=== PATIENT | female | born 1935 | race Hispanic/Latino ===

== ENCOUNTER 2017-02-02 18:04 | Emergency (ER) | payer MEDICARE, OTHER ==
[2017-02-02 18:04] VITALS: BMI 27.2
[2017-02-02 18:11] VITALS: RESP 18; TEMP 97.9
[2017-02-02 18:52] LABS: RBC URINE 11 /hpf (0-3); URINE BILIRUBIN NEGATIVE (NEGATIVE); URINE BLOOD SMALL (NEGATIVE); URINE COLOR YELLOW (YELLOW); URINE GLUCOSE (UA) NEG (Normal); URINE KETONE NEGATIVE (NEGATIVE); URINE LEUKOCYTE ESTERASE SMALL Leu/uL (Negative); URINE PROTEIN NEGATIVE (NEGATIVE); URINE UROBILINOGEN 0.2-1.0 mg/dL (0.2-1.0); WBC URINE 14 /hpf (0-5)
--- NOTE | 2017-02-02 19:04 | ED PDOC ---
HPI: Abdomen Time Seen by Provider: 02/02/17 18:16 Chief Complaint (Nursing): Abdominal Pain Chief Complaint (Provider): Abdominal Pain History Per: Patient History/Exam Limitations: no limitations Onset/Duration Of Symptoms: Days (x4) Current Symptoms Are (Timing): Still Present Additional Complaint(s): 82 year old female who presents to the emergency department with a complaint of "crampy" intermittent abdominal pain associated with pelvic pain, chills, mild nausea and loss of appetite. Denied vomiting, fever, diarrhea, constipation, difficulty urinating, bloody urine, flank pain or taking pain medication. Patient also reported runny nose but stated that it is constantly runny. PMD: none provided Past Medical History Reviewed: Historical Data, Nursing Documentation, Vital Signs Vital Signs: Last Vital Signs Temp 97.9 F 02/02/17 18:08 Pulse 84 02/02/17 20:02 Resp 18 02/02/17 20:02 BP 109/64 02/02/17 20:02 Pulse Ox 96 02/02/17 20:02 - Medical History PMH: Arthritis, Depression, HTN, Hypercholesterolemia Denies: Anemia, Anxiety, Atrial Fibrillation, Bipolar Disorder, CAD, Cardia Arrhythmia, CHF, Crohn's Disease, Diverticulitis, Fractures, Gastritis, Gall Bladder Disease, HIV, Mitral Valve Prolapse, Osteoporosis, Pancreatitis, Paranoia, Peripheral Edema, Post Traumatic Stress Disorder, Chronic Kidney Disease, Rheumatoid Arthritis, Schizophrenia, Sickle Cell Disease - Surgical History Surgical History: Cholecystectomy Denies: Appendectomy, CABG, Carotid Endarterectomy, Coronary Stent, Pacemaker , Tonsillectomy - Family History Family History: States: No Known Family Hx - Social History Current smoker - smoking cessation education provided: No Alcohol: None Drugs: Denies - Home Medications Home Medications: Ambulatory Orders Medication Instructions Recorded Calcium/Vitamin D [Calcium + D 600 1 tab PO BID 12/04/13 mg-200 Iu] Escitalopram [Lexapro] 10 mg PO DAILY 12/04/13 Lisinopril 10 mg PO DAILY 12/04/13 Omeprazole 40 mg PO DAILY 12/04/13 Simvastatin 20 mg PO DAILY 12/04/13 Albuterol 0.5% [Albuterol 0.5% 3 ml IH Q4H PRN #50 neb 01/27/16 Inhal Moraima (2.5 mg/0.5 ml) UD] Aspirin [Adult Low Dose Aspirin EC] 81 mg PO DAILY 02/02/17 Nitrofurantoin Macrocrystals 1 cap PO BID #14 cap 02/02/17 [Macrobid] Ranitidine HCl [Zantac 75] 1 tab PO DAILY 02/02/17 - Allergies Allergies/Adverse Reactions: Allergies Allergy/AdvReac Type Severity Reaction Status Date / Time No Known Allergies Allergy Verified 01/27/16 17:42 Review of Systems ROS Statement: Except As Marked, All Systems Reviewed And Found Negative Constitutional: Positive for: Chills. Negative for: Fever ENT: Positive for: Nose Discharge (constant) Gastrointestinal: Positive for: Nausea (mild), Abdominal Pain ("crampy"), Other (loss of appetite). Negative for: Vomiting, Diarrhea, Constipation Genitourinary Female: Positive for: Pelvic Pain. Negative for: Dysuria, Hematuria Musculoskeletal: Negative for: Back Pain (flank) Physical Exam - Reviewed Nursing Documentation Reviewed: Yes Vital Signs Reviewed: Yes - Physical Exam Appears: Positive for: Non-toxic, No Acute Distress Head Exam: Positive for: ATRAUMATIC, NORMOCEPHALIC Skin: Positive for: Warm, Dry, Pallor Eye Exam: Positive for: EOMI, PERRL ENT: Negative for: Pharyngeal Erythema, Tonsillar Exudate Neck: Positive for: Painless ROM, Supple Cardiovascular/Chest: Positive for: Regular Rate, Rhythm, Chest Non Tender. Negative for: Murmur Respiratory: Positive for: Normal Breath Sounds. Negative for: Rales, Wheezing , Respiratory Distress Gastrointestinal/Abdominal: Positive for: Soft. Negative for: Tenderness, Mass , Distended, Guarding Back: Positive for: Other (Severe kyphosis). Negative for: L CVA Tenderness, R CVA Tenderness, Vertebral Tenderness Extremity: Positive for: Normal ROM. Negative for: Deformity Lymphatic: Negative for: Adenopathy Neurologic/Psych: Positive for: Alert. Negative for: Motor/Sensory Deficits - Laboratory Results Result Diagrams: 02/02/17 19:10 02/02/17 19:10 - ECG O2 Sat by Pulse Oximetry: 93 (RA) Pulse Ox Interpretation: Normal Medical Decision Making Medical Decision Making: Initial Impression: Pelvic pain; Chills Differential Diagnosis: UTI; cystitis; colitis; viral illness; dehydration Initial Plan: * VBG * EKG * CMP * Lipase * Magnesium * Phosphorous * Urine * Urine dipstick * CBC * CXR * Blood culture * Urine culture * Influenza A B * Urinalysis Labs c/w UTI. No emergently significant lab abnormalities. Stable for DC with outpatient f/u. DW pt findings and plan of care. Pt eager to go home. Scribe Attestation: Documented by Adriane Cortez, acting as a scribe for Shefali George MD. Provider Scribe Attestation: All medical record entries made by the Scribe were at my direction and personally dictated by me. I have reviewed the chart and agree that the record accurately reflects my personal performance of the history, physical exam, medical decision making, and the department course for this patient. I have also personally directed, reviewed, and agree with the discharge instructions and disposition. Disposition - Clinical Impression Clinical Impression: UTI (urinary tract infection) Counseled Patient/Family Regarding: Studies Performed, Diagnosis, Need For Followup, Rx Given - Disposition Referrals: [facility] [Outside] - 02/04/17 Disposition: Routine/Home Disposition Time: 20:00 Condition: GOOD Prescriptions: Nitrofurantoin Macrocrystals [Macrobid] 1 cap PO BID #14 cap Instructions: Urinary Tract Infection in Women (ED)
[2017-02-02 19:15] LABS: BASO % 0.5 % (0.0-2.0); EOS # 0.1 K/uL (0.0-0.7); EOS % 2.1 % (0.0-4.0); HEMATOCRIT 39.3 % (34.0-47.0); LYMPH # 1.9 K/uL (1.0-4.3); LYMPH % 29.4 % (20.0-40.0); MEAN CELL VOLUME 86.2 fl (81.0-99.0); MEAN CORPUSCULAR HEMOGLOBIN 27.9 pg (27.0-31.0); MEAN CORPUSCULAR HGB CONC 32.4 g/dL (33.0-37.0); MONO # 0.5 K/uL (0.0-0.8); MONO % 7.4 % (0.0-10.0); NEUT # 3.8 K/uL (1.8-7.0); NEUT % 60.6 % (50.0-75.0); NRBC % 0.1 % (0.0-0.0); WHITE BLOOD COUNT 6.3 K/uL (4.8-10.8)
[2017-02-02 19:22] LABS: VENOUS BLOOD GAS BASE EXCESS 2.8 mmol/L (0.0-2.0); VENOUS BLOOD GAS PCO2 57 mmHg (40-60); VENOUS BLOOD PH 7.33 (7.32-7.43)
[2017-02-02 19:25] LABS: ALB/GLOB RATIO 1.3 (1.0-2.1); ALKALINE PHOSPHATASE 89 U/L (38-126); ALT/SGPT 35 U/L (9-52); AST/SGOT 28 U/L (14-36); BILIRUBIN,TOTAL 0.3 mg/dl (0.2-1.3); BLOOD UREA NITROGEN 22 mg/dl (7-17); CALCIUM 9.2 mg/dL (8.4-10.2); CARBON DIOXIDE 29 mmol/L (22-30); CHLORIDE 104 mmol/L (98-107); GFR AFRICAN-AMERICAN > 60; GLUCOSE,RANDOM 109 mg/dL (65-105); LIPASE 161 U/L (23-300); MAGNESIUM 1.5 MG/DL (1.6-2.3); PHOSPHOROUS 3.3 mg/dl (2.5-4.5); POTASSIUM 3.7 MMOL/L (3.6-5.0); SODIUM 142 mmol/l (132-148); TOTAL PROTEIN 7.3 G/DL (6.3-8.2)
[2017-02-02 20:26] VITALS: BP 110/61; PULSE 86; O2SAT 96
--- NOTE | 2017-02-03 11:13 | CARD ---
APPROVED REPORT EKG Measurement Heart [id number] <Conclusion> Sinus rhythm with premature atrial complexes Otherwise normal ECG
--- NOTE | 2017-02-03 15:23 | RAD ---
HISTORY: chills COMPARISON: No prior. FINDINGS: LUNGS: Low lung volumes, crowded bronchovascular markings and mild bibasilar atelectasis in part due to significant scoliotic deformity. PLEURA: No significant pleural effusion identified, no pneumothorax apparent. CARDIOVASCULAR: Heart size is difficult to assess due to at aforementioned scoliosis and distortion of the mediastinum. The aorta is also poorly delineated though appears to be ectatic and uncoiled. . OSSEOUS STRUCTURES: As above. VISUALIZED UPPER ABDOMEN: Normal. OTHER FINDINGS: None. IMPRESSION: Significant scoliosis again noted with the low lung volumes, crowded bronchovascular markings and mild bibasilar atelectasis as above.
== END 2017-02-02 20:31 | disposition home or self-care (01) ==
LOC: H.ER 18:04
DX: N39.0 Urinary tract infection, site not specified (principal); E78.00 Pure hypercholesterolemia, unspecified; F32.9 Major depressive disorder, single episode, unspecified; I10 Essential (primary) hypertension; I49.1 Atrial premature depolarization; M41.9 Scoliosis, unspecified; Z79.82 Long term (current) use of aspirin

== ENCOUNTER 2017-05-01 09:37 | Emergency (ER) | payer MEDICARE, SELFPAY ==
[2017-05-01 09:37] VITALS: BMI 27.2
[2017-05-01 10:21] VITALS: TEMP 97.9; O2SAT 96
[2017-05-01] MEDS ORDERED: Sodium Chloride 0.9% 1,000 ML IV STA (10:48)
--- NOTE | 2017-05-01 11:14 | ED PDOC ---
HPI: Abdomen Time Seen by Provider: 05/01/17 10:25 Chief Complaint (Nursing): Abdominal Pain Chief Complaint (Provider): Abdominal Pain History Per: Patient History/Exam Limitations: no limitations Onset/Duration Of Symptoms: Hrs Current Symptoms Are (Timing): Still Present Additional Complaint(s): Tamara Halney is an 82 year old female with a history of hypertension that presents to the ED with a chief complaint of abdominal cramping and diarrhea associated with nausea that began this morning. Patient reports that her lower abdominal cramping resolved after an episode of diarrhea, which she reports was watery, loose, and nonbloody. Patient denies any fever, chills, chest pain, vomiting, urinary problems, recent travel, or antibiotics use. She states that she ate cheesecake last night, slept, and woke up with all of these symptoms. PMD: Goes to the clinic Past Medical History Reviewed: Historical Data, Nursing Documentation, Vital Signs Vital Signs: Last Vital Signs Temp 97.9 F 05/01/17 10:20 Pulse 82 05/01/17 17:15 Resp 18 05/01/17 17:15 BP 126/70 05/01/17 17:15 Pulse Ox 96 05/01/17 17:15 - Medical History PMH: Arthritis, Depression, HTN, Hypercholesterolemia Denies: Anemia, Anxiety, Atrial Fibrillation, Bipolar Disorder, CAD, Cardia Arrhythmia, CHF, Crohn's Disease, Diverticulitis, Fractures, Gastritis, Gall Bladder Disease, HIV, Mitral Valve Prolapse, Osteoporosis, Pancreatitis, Paranoia, Peripheral Edema, Post Traumatic Stress Disorder, Chronic Kidney Disease, Rheumatoid Arthritis, Schizophrenia, Sickle Cell Disease - Surgical History Surgical History: Cholecystectomy Denies: Appendectomy, CABG, Carotid Endarterectomy, Coronary Stent, Pacemaker , Tonsillectomy Other surgeries: right hip replacement - Family History Family History: States: Unknown Family Hx - Home Medications Home Medications: Ambulatory Orders Medication Instructions Recorded Calcium/Vitamin D [Calcium + D 600 1 tab PO BID 12/04/13 mg-200 Iu] Escitalopram [Lexapro] 10 mg PO DAILY 12/04/13 Lisinopril 10 mg PO DAILY 12/04/13 Omeprazole 40 mg PO DAILY 12/04/13 Simvastatin 20 mg PO DAILY 12/04/13 Albuterol 0.5% [Albuterol 0.5% 3 ml IH Q4H PRN #50 neb 01/27/16 Inhal Moraima (2.5 mg/0.5 ml) UD] Aspirin [Adult Low Dose Aspirin EC] 81 mg PO DAILY 02/02/17 Nitrofurantoin Macrocrystals 1 cap PO BID #14 cap 02/02/17 [Macrobid] Ranitidine HCl [Zantac 75] 1 tab PO DAILY 02/02/17 Ciprofloxacin HCl [Cipro] 500 mg PO BID #14 tablet 05/01/17 Dicyclomine [Dicyclomine HCl] 10 mg PO TID PRN #15 cap 05/01/17 Metronidazole [Flagyl] 500 mg PO BID #14 tablet 05/01/17 Pantoprazole Sodium [Protonix] 20 mg PO DAILY #30 ect 05/01/17 - Allergies Allergies/Adverse Reactions: Allergies Allergy/AdvReac Type Severity Reaction Status Date / Time No Known Allergies Allergy Verified 01/27/16 17:42 Review of Systems ROS Statement: Except As Marked, All Systems Reviewed And Found Negative Constitutional: Negative for: Fever, Chills Cardiovascular: Negative for: Chest Pain Gastrointestinal: Positive for: Nausea, Abdominal Pain, Diarrhea. Negative for : Vomiting Genitourinary Female: Negative for: Dysuria, Frequency, Incontinence, Hematuria Physical Exam - Reviewed Nursing Documentation Reviewed: Yes Vital Signs Reviewed: Yes - Physical Exam Appears: Positive for: Non-toxic, No Acute Distress (Patient appears comfortable ) Head Exam: Positive for: ATRAUMATIC, NORMOCEPHALIC Skin: Positive for: Normal Color, Warm Eye Exam: Positive for: EOMI, Normal appearance, PERRL Neck: Positive for: Normal, Supple Cardiovascular/Chest: Positive for: Regular Rate, Rhythm. Negative for: Murmur Respiratory: Positive for: Normal Breath Sounds. Negative for: Wheezing Gastrointestinal/Abdominal: Positive for: Normal Exam, Soft. Negative for: Tenderness, Distended Back: Positive for: Normal Inspection. Negative for: L CVA Tenderness, R CVA Tenderness Extremity: Positive for: Normal ROM. Negative for: Deformity, Swelling Neurologic/Psych: Positive for: Alert, Oriented. Negative for: Motor/Sensory Deficits - Laboratory Results Result Diagrams: 05/01/17 11:35 05/01/17 11:35 - ECG O2 Sat by Pulse Oximetry: 96 (RA) Pulse Ox Interpretation: Normal - Progress Re-evaluation Time: 16:00 Condition: Re-examined, Improved Medical Decision Making Medical Decision Making: Impression: Abdominal Pain and Diarrhea, ddx include but not limited to Acute Colitis vs. Gastroenteritis vs. Pancreatitis Plan: * CT Abdomen/Pelvis with IV Contrast * CMP * CBC * Lipase * Urine Dip * Bentyl 10 mg PO * NaCl 1000 mLs at 1000 mLs/hr * Reevaluation Time: 14:29 CT ABDOMEN AND PELVIS FINDINGS: LOWER THORAX: Unremarkable. Hiatal hernia suggested. Coronary artery calcifications. LIVER: Diffuse fatty infiltration of the liver suggested. No gross lesion or ductal dilation. GALLBLADDER AND BILE DUCTS: Cholecystectomy clips present. PANCREAS: Unremarkable. No gross lesion or ductal dilation. SPLEEN: Multiple cystic appearing mass is present. ADRENALS: Unremarkable. No mass. KIDNEYS AND URETERS: Each kidney appears mildly atrophic. No hydronephrosis. Bilateral renal cystic masses noted. VASCULATURE: Atherosclerotic vascular calcifications. No aortic aneurysm. BOWEL: Left and right stool retention. No obstruction. No gross mural thickening. Rectosigmoid redundant colon with innumerable diverticuli present. Circular muscle hypertrophic changes likely. Trace thread-like pericolonic inflammatory changes may be chronic. No abscess, free air or bowel obstruction appreciated. APPENDIX: Not identified with certainty. PERITONEUM: Trace inflammatory changes possibly chronic --patient has extensive rectosigmoid divercitulosis. No prominent pericolonic current inflammatory changes suggested. Chronic trace residual pericolonic inflammatory changes possible. No abscess or obstruction. No free fluid. No free air. LYMPH NODES: Unremarkable. No enlarged lymph nodes. BLADDER: Unremarkable. REPRODUTIVE: Unremarkable. BONES: Extensive and severe scoliosis. Extensive and severe bony osseous hypertrophic changes. No gross fracture seen. Right hip prosthesis in place associated artifact limiting right hemopelvic evaluation;. OTHER FINDINGS: None. IMPRESSION: No bowel obstruction or free air. Extensive rectosigmoid diverticulosis. Other findings as above. Scribe Attestation: Documented by Chanelle Grijalva and Joe Galicia, acting as scribes for Yeimi Middleton MD. Provider Scribe Attestation: All medical record entries made by the Scribe were at my direction and personally dictated by me. I have reviewed the chart and agree that the record accurately reflects my personal performance of the history, physical exam, medical decision making, and the department course for this patient. I have also personally directed, reviewed, and agree with the discharge instructions and disposition. Disposition - Clinical Impression Clinical Impression: Abdominal pain, Colitis, Diverticulosis - Patient ED Disposition Is Patient to be Admitted: No Doctor Will See Patient In The: Office Counseled Patient/Family Regarding: Studies Performed, Diagnosis, Need For Followup - Disposition Referrals: Andres Peres MD, PhD [Staff Provider] - Disposition: Routine/Home Disposition Time: 16:32 Condition: GOOD Additional Instructions: Take your medications as instructed. Follow up with your PCP in 2-3 days. Return for worsening. Prescriptions: Ciprofloxacin HCl [Cipro] 500 mg PO BID #14 tablet Dicyclomine [Dicyclomine HCl] 10 mg PO TID PRN #15 cap PRN Reason: Diarrhea Metronidazole [Flagyl] 500 mg PO BID #14 tablet Pantoprazole Sodium [Protonix] 20 mg PO DAILY #30 ect Instructions: Inflammatory Bowel Disease (DC)
[2017-05-01 11:53] LABS: BASO % 0.2 % (0.0-2.0); EOS % 0.1 % (0.0-4.0); HEMOGLOBIN 14.1 g/dL (12.0-16.0); LYMPH # 1.1 K/uL (1.0-4.3); LYMPH % 7.6 % (20.0-40.0); MEAN CELL VOLUME 86.7 fl (81.0-99.0); MEAN CORPUSCULAR HEMOGLOBIN 28.5 pg (27.0-31.0); MEAN CORPUSCULAR HGB CONC 32.9 g/dL (33.0-37.0); MEAN PLATELET VOLUME 8.4 fl (7.2-11.7); MONO # 0.8 K/uL (0.0-0.8); MONO % 5.4 % (0.0-10.0); NEUT # 12.6 K/uL (1.8-7.0); NEUT % 86.7 % (50.0-75.0); PLATELET COUNT 242 K/uL (130-400); RBC 4.96 Mil/uL (3.80-5.20); RED CELL DISTRIBUTION WIDTH 14.4 % (11.5-14.5); WHITE BLOOD COUNT 14.5 K/uL (4.8-10.8)
[2017-05-01 12:17] LABS: ALB/GLOB RATIO 1.2 (1.0-2.1); ALBUMIN 4.1 g/dL (3.5-5.0); ALT/SGPT 29 U/L (9-52); AST/SGOT 40 U/L (14-36); BLOOD UREA NITROGEN 22 mg/dl (7-17); CALCIUM 9.8 mg/dL (8.4-10.2); GFR AFRICAN-AMERICAN > 60; GFR NON-AFRICAN AMERICAN > 60; LIPASE 339 U/L (23-300)
[2017-05-01 12:34] LABS: BANDS 2 % (0-2); LYMPHOCYTE 5 % (20-50); MONOCYTE 6 % (0-10); NEUTROPHIL 87 % (42-75); PLATELET ESTIMATE NORMAL (NORMAL); TOTAL CELLS COUNTED 100
[2017-05-01] MEDS ORDERED: Iohexol 300 100 ML IJ ONE (14:00)
--- NOTE | 2017-05-01 15:08 | CT ---
PROCEDURE: CT Abdomen and Pelvis with contrast HISTORY: abdominal pain diarrhea COMPARISON: None. TECHNIQUE: Contrast dose: 95 mL Omnipaque 300 Radiation dose: Total exam DLP = 631 mGy-cm. This CT exam was performed using one or more of the following dose reduction techniques: Automated exposure control, adjustment of the mA and/or kV according to patient size, and/or use of iterative reconstruction technique. FINDINGS: LOWER THORAX: Unremarkable. Hiatal hernia suggested. Coronary artery calcifications LIVER: Diffuse fatty infiltration of the liver suggested. No gross lesion or ductal dilatation. GALLBLADDER AND BILE DUCTS: Cholecystectomy clips present PANCREAS: Unremarkable. No gross lesion or ductal dilatation. SPLEEN: Multiple cystic appearing mass is present ADRENALS: Unremarkable. No mass. KIDNEYS AND URETERS: Each kidney appears mildly atrophic. No hydronephrosis. Bilateral renal cystic masses noted. VASCULATURE: Atherosclerotic vascular calcifications No aortic aneurysm. BOWEL: Left and right stool retention. No obstruction. No gross mural thickening. Rectosigmoid redundant colon with innumerable diverticuli present. Circular muscle hypertrophic changes likely. Trace thread-like pericolonic inflammatory changes may be chronic. No abscess, free air or bowel obstruction appreciated. APPENDIX: Not identified with certainty. PERITONEUM: Trace inflammatory changes possibly chronic - -patient has extensive rectosigmoid diverticulosis. No prominent pericolonic current inflammatory changes suggested. Chronic trace residual pericolonic inflammatory changes possible. . No abscess or obstruction No free fluid. No free air. LYMPH NODES: Unremarkable. No enlarged lymph nodes. BLADDER: Unremarkable. REPRODUCTIVE: Unremarkable. BONES: Extensive and severe scoliosis. Extensive and severe bony osseous hypertrophic changes. No gross fracture seen. Right hip prosthesis in place associated artifact limiting right hemipelvic evaluation OTHER FINDINGS: None. IMPRESSION: No bowel obstruction or free air. Extensive rectosigmoid diverticulosis. Other findings as above
[2017-05-01 17:16] VITALS: BP 126/70; PULSE 82; RESP 18
== END 2017-05-01 17:02 | disposition home or self-care (01) ==
LOC: H.ER 09:37
DX: K52.9 Noninfective gastroenteritis and colitis, unspecified (principal); K57.90 Diverticulosis of intestine, part unspecified, without perforation or abscess without bleeding; E78.00 Pure hypercholesterolemia, unspecified; F32.9 Major depressive disorder, single episode, unspecified; I10 Essential (primary) hypertension; Z79.82 Long term (current) use of aspirin
CPT/HCPCS: 74177; 80053; 83690; 85025; 99284; J7040; Q9967

== ENCOUNTER 2017-07-19 06:50 | Emergency (ER) | payer MEDICARE, SELFPAY ==
[2017-07-19 06:51] VITALS: BMI 27.2
[2017-07-19] MEDS ORDERED: Sodium Chloride 0.9% 1,000 ML IV STA (07:23)
[2017-07-19 07:50] LABS: BASO % 0.4 % (0.0-2.0); EOS # 0.1 K/uL (0.0-0.7); HEMOGLOBIN 12.5 g/dL (12.0-16.0); LYMPH # 1.4 K/uL (1.0-4.3); LYMPH % 19.8 % (20.0-40.0); MEAN CELL VOLUME 87.1 fl (81.0-99.0); MEAN CORPUSCULAR HEMOGLOBIN 28.5 pg (27.0-31.0); MEAN CORPUSCULAR HGB CONC 32.7 g/dL (33.0-37.0); MEAN PLATELET VOLUME 8.2 fl (7.2-11.7); MONO # 0.5 K/uL (0.0-0.8); MONO % 6.9 % (0.0-10.0); NEUT # 5.1 K/uL (1.8-7.0); NEUT % 71.9 % (50.0-75.0); NRBC % 0.1 % (0.0-0.0); RBC 4.39 Mil/uL (3.80-5.20)
--- NOTE | 2017-07-19 07:51 | ED PDOC ---
HPI: Abdomen Time Seen by Provider: 07/19/17 07:05 Chief Complaint (Nursing): Abdominal Pain Chief Complaint (Provider): Abdominal Pain History Per: Patient History/Exam Limitations: no limitations Onset/Duration Of Symptoms: Days (1x) Current Symptoms Are (Timing): Still Present Location Of Pain/Discomfort: Other (Lower) Quality Of Discomfort: "Pain" Associated Symptoms: Nausea, Diarrhea Additional Complaint(s): 82 year old female presents to the ED complaining nausea and lower abdominal pain onset yesterday. Reports she might have a bowel infection and had diarrhea yesterday. States the pain does not radiate but she feels uncomfortable. She also takes medication for blood pressure and cholesterol. Denies fever, burning or blood in urine, headache, sore throat, or chest pain. PMD: Clinic (Non [facility] Provider) Past Medical History Reviewed: Historical Data, Nursing Documentation, Vital Signs Vital Signs: Last Vital Signs Temp 97.4 F L 07/19/17 07:03 Pulse 82 07/19/17 07:03 Resp 16 07/19/17 07:03 BP 135/75 07/19/17 07:03 Pulse Ox 95 07/19/17 07:55 - Medical History PMH: Arthritis, Depression, HTN, Hypercholesterolemia Denies: Anemia, Anxiety, Atrial Fibrillation, Bipolar Disorder, CAD, Cardia Arrhythmia, CHF, Crohn's Disease, Diverticulitis, Fractures, Gastritis, Gall Bladder Disease, HIV, Mitral Valve Prolapse, Osteoporosis, Pancreatitis, Paranoia, Peripheral Edema, Post Traumatic Stress Disorder, Chronic Kidney Disease, Rheumatoid Arthritis, Schizophrenia, Sickle Cell Disease - Surgical History Surgical History: Cholecystectomy Denies: Appendectomy, CABG, Carotid Endarterectomy, Coronary Stent, Pacemaker , Tonsillectomy - Family History Family History: States: Unknown Family Hx - Social History Current smoker - smoking cessation education provided: No Ex-Smoker (has not smoked in the last 12 months): Yes (last smoked 30 years ago) - Home Medications Home Medications: Ambulatory Orders Medication Instructions Recorded Calcium/Vitamin D [Calcium + D 600 1 tab PO BID 12/04/13 mg-200 Iu] Escitalopram [Lexapro] 10 mg PO DAILY 12/04/13 Lisinopril 10 mg PO DAILY 12/04/13 Omeprazole 40 mg PO DAILY 12/04/13 Simvastatin 20 mg PO DAILY 12/04/13 Albuterol 0.5% [Albuterol 0.5% 3 ml IH Q4H PRN #50 neb 01/27/16 Inhal Moraima (2.5 mg/0.5 ml) UD] Aspirin [Adult Low Dose Aspirin EC] 81 mg PO DAILY 02/02/17 Nitrofurantoin Macrocrystals 1 cap PO BID #14 cap 02/02/17 [Macrobid] Ranitidine HCl [Zantac 75] 1 tab PO DAILY 02/02/17 Ciprofloxacin HCl [Cipro] 500 mg PO BID #14 tablet 05/01/17 Dicyclomine [Dicyclomine HCl] 10 mg PO TID PRN #15 cap 05/01/17 Metronidazole [Flagyl] 500 mg PO BID #14 tablet 05/01/17 Pantoprazole Sodium [Protonix] 20 mg PO DAILY #30 ect 05/01/17 Ciprofloxacin HCl [Cipro] 250 mg PO BID #6 tab 07/19/17 - Allergies Allergies/Adverse Reactions: Allergies Allergy/AdvReac Type Severity Reaction Status Date / Time No Known Allergies Allergy Verified 01/27/16 17:42 Review of Systems ROS Statement: Except As Marked, All Systems Reviewed And Found Negative Constitutional: Negative for: Fever ENT: Negative for: Throat Pain Cardiovascular: Negative for: Chest Pain Gastrointestinal: Positive for: Abdominal Pain (lower), Diarrhea Genitourinary Female: Negative for: Dysuria Physical Exam - Reviewed Nursing Documentation Reviewed: Yes Vital Signs Reviewed: Yes - Physical Exam Appears: Positive for: Non-toxic, No Acute Distress Head Exam: Positive for: ATRAUMATIC, NORMAL INSPECTION, NORMOCEPHALIC Skin: Positive for: Normal Color, Warm, Dry Eye Exam: Positive for: EOMI, Normal appearance, PERRL ENT: Positive for: Normal ENT Inspection (tongue is dry) Neck: Positive for: Normal, Painless ROM, Supple. Negative for: Decreased ROM Cardiovascular/Chest: Positive for: Regular Rate, Rhythm. Negative for: Murmur Respiratory: Positive for: Normal Breath Sounds. Negative for: Decreased Breath Sounds, Accessory Muscle Use, Respiratory Distress Gastrointestinal/Abdominal: Positive for: Normal Exam, Bowel Sounds, Soft. Negative for: Tenderness, Distended, Guarding, Rebound Back: Positive for: Normal Inspection. Negative for: L CVA Tenderness, R CVA Tenderness Extremity: Positive for: Normal ROM. Negative for: Tenderness, Pedal Edema, Deformity Neurologic/Psych: Positive for: Alert, Oriented (x3). Negative for: Motor/ Sensory Deficits - Laboratory Results Result Diagrams: 07/19/17 07:30 07/19/17 07:30 Urine dip results: Positive for: Leukocyte Esterase - ECG O2 Sat by Pulse Oximetry: 95 (RA) Pulse Ox Interpretation: Normal Medical Decision Making Medical Decision Making: Time: 721 Initial Plan: --CMP --Lipase --ED Urine Dipstick --CBC w/ Differential --Obstructive Series [RAD] --Normal Saline 1000 mls/hr --Toradol 15mg --Reevaluation Scribe Attestation: Documented by Fco Vasques, acting as a scribe for Ruby Matias MD Provider Scribe Attestation: All medical record entries made by the Scribe were at my direction and personally dictated by me. I have reviewed the chart and agree that the record accurately reflects my personal performance of the history, physical exam, medical decision making, and the department course for this patient. I have also personally directed, reviewed, and agree with the discharge instructions and disposition. Disposition - Clinical Impression Clinical Impression: Pyuria - Patient ED Disposition Is Patient to be Admitted: No Doctor Will See Patient In The: Office Counseled Patient/Family Regarding: Diagnosis, Need For Followup, Rx Given - Disposition Referrals: [facility] [Outside] [facility] [Outside] Disposition: Routine/Home Disposition Time: 10:00 Condition: STABLE Prescriptions: Ciprofloxacin HCl [Cipro] 250 mg PO BID #6 tab Instructions: Urinary Tract Infections in Adults Forms: [facility] (Bengali) - POA Present On Arrival: None
[2017-07-19 07:57] LABS: ALB/GLOB RATIO 1.2 (1.0-2.1); ALBUMIN 3.8 g/dL (3.5-5.0); ALT/SGPT 35 U/L (9-52); AST/SGOT 29 U/L (14-36); BLOOD UREA NITROGEN 24 mg/dl (7-17); CALCIUM 9.4 mg/dL (8.4-10.2); GFR AFRICAN-AMERICAN > 60; GFR NON-AFRICAN AMERICAN > 60; LIPASE 290 U/L (23-300)
[2017-07-19 08:35] LABS: SQUAMOUS EPITHIAL 3 /hpf (0-5); URINE BACTERIA RARE (<OCC); URINE BILIRUBIN NEGATIVE (NEGATIVE); URINE BLOOD MODERATE (NEGATIVE); URINE CLARITY SLIGHTY-CLOUDY (Clear); URINE COLOR YELLOW (YELLOW); URINE GLUCOSE (UA) NEG (Normal); URINE LEUKOCYTE ESTERASE SMALL Leu/uL (Negative); URINE PROTEIN NEGATIVE (NEGATIVE); URINE UROBILINOGEN 0.2-1.0 mg/dL (0.2-1.0)
--- NOTE | 2017-07-19 09:38 | RAD ---
PROCEDURE: Radiographs of the chest and abdomen (obstructive series) HISTORY: lower abd pain COMPARISON: No prior. TECHNIQUE: AP radiograph of the chest, with upright and supine radiographs of the abdomen. FINDINGS: CHEST: No definitive infiltrate appreciated or pleural effusion with limited right hemidiaphragm evident. Cardiac size is difficult to evaluate due to frontal technique and gross scoliotic thoracolumbar spinal deformity. ABDOMEN AND PELVIS: Bowel: There is a nonobstructive bowel gas pattern appreciated. Moderate fecal loading seen throughout various large-bowel segments. Surgical clip is identified at the inferior pelvis as well as to with the inferior epigastric region. Free air: None. Bones: Gross thoracolumbar scoliotic spinal deformity. Other findings: Prior right total hip replacement. IMPRESSION: Nonobstructive bowel gas pattern appreciated. Gross thoracolumbar spinal scoliotic deformity distortion imaging of the chest. Surgical clips in the abdomen and pelvis soft tissues.
[2017-07-19 10:54] VITALS: BP 127/73; PULSE 77; RESP 17; TEMP 98.1; O2SAT 97
== END 2017-07-19 10:50 | disposition home or self-care (01) ==
LOC: H.ER 06:50
DX: N39.0 Urinary tract infection, site not specified (principal); E78.00 Pure hypercholesterolemia, unspecified; F32.9 Major depressive disorder, single episode, unspecified; I10 Essential (primary) hypertension; Z79.82 Long term (current) use of aspirin
CPT/HCPCS: 74022; 80053; 81003; 83690; 85025; 87086; 96361; 96374; 99284; J1885; J7040

== ENCOUNTER 2017-08-17 14:41 | Emergency (ER) | payer MEDICARE, SELFPAY ==
[2017-08-17 14:42] VITALS: BMI 27.2
--- NOTE | 2017-08-17 15:08 | ED PDOC ---
HPI: Abdomen Time Seen by Provider: 08/17/17 14:51 Chief Complaint (Nursing): Abdominal Pain History Per: Patient Onset/Duration Of Symptoms: Days (1) Current Symptoms Are (Timing): Intermittent Episodes Severity: Mild Pain Scale Rating Of: 2 Location Of Pain/Discomfort: Suprapubic Quality Of Discomfort: Cramping Associated Symptoms: denies: Fever, Nausea, Vomiting, Diarrhea, Urinary Symptoms Exacerbating Factors: None Alleviating Factors: None Additional Complaint(s): Crampy lower abd pain x 1 day. Denies fever, NVD. Denies dysuria. Denies lower back pain. Past Medical History Vital Signs: Last Vital Signs Temp 98.6 F 08/17/17 14:46 Pulse 72 08/17/17 14:46 Resp 20 08/17/17 14:46 BP 128/78 08/17/17 14:46 Pulse Ox 95 08/17/17 15:08 - Medical History PMH: Arthritis, Depression, HTN, Hypercholesterolemia Denies: Anemia, Anxiety, Atrial Fibrillation, Bipolar Disorder, CAD, Cardia Arrhythmia, CHF, Crohn's Disease, Diverticulitis, Fractures, Gastritis, Gall Bladder Disease, HIV, Mitral Valve Prolapse, Osteoporosis, Pancreatitis, Paranoia, Peripheral Edema, Post Traumatic Stress Disorder, Chronic Kidney Disease, Rheumatoid Arthritis, Schizophrenia, Sickle Cell Disease Other PMH: Colitis - Surgical History Surgical History: Cholecystectomy Denies: Appendectomy, CABG, Carotid Endarterectomy, Coronary Stent, Pacemaker , Tonsillectomy - Family History Family History: States: Unknown Family Hx - Home Medications Home Medications: Ambulatory Orders Medication Instructions Recorded Calcium/Vitamin D [Calcium + D 600 1 tab PO BID 12/04/13 mg-200 Iu] Escitalopram [Lexapro] 10 mg PO DAILY 12/04/13 Lisinopril 10 mg PO DAILY 12/04/13 Omeprazole 40 mg PO DAILY 12/04/13 Simvastatin 20 mg PO DAILY 12/04/13 Albuterol 0.5% [Albuterol 0.5% 3 ml IH Q4H PRN #50 neb 01/27/16 Inhal Moraima (2.5 mg/0.5 ml) UD] Aspirin [Adult Low Dose Aspirin EC] 81 mg PO DAILY 02/02/17 Nitrofurantoin Macrocrystals 1 cap PO BID #14 cap 02/02/17 [Macrobid] Ranitidine HCl [Zantac 75] 1 tab PO DAILY 02/02/17 Ciprofloxacin HCl [Cipro] 500 mg PO BID #14 tablet 05/01/17 Dicyclomine [Dicyclomine HCl] 10 mg PO TID PRN #15 cap 05/01/17 Metronidazole [Flagyl] 500 mg PO BID #14 tablet 05/01/17 Pantoprazole Sodium [Protonix] 20 mg PO DAILY #30 ect 05/01/17 Ciprofloxacin HCl [Cipro] 250 mg PO BID #6 tab 07/19/17 Sulfamethoxazole/Trimethoprim 1 tab PO BID #20 tab 08/17/17 [Bactrim DS 800 mg-160 mg] - Allergies Allergies/Adverse Reactions: Allergies Allergy/AdvReac Type Severity Reaction Status Date / Time No Known Allergies Allergy Verified 01/27/16 17:42 Review of Systems ROS Statement: Except As Marked, All Systems Reviewed And Found Negative Constitutional: Positive for: Chills. Negative for: Fever Gastrointestinal: Positive for: Abdominal Pain. Negative for: Nausea, Vomiting , Diarrhea Genitourinary Female: Negative for: Dysuria, Frequency Physical Exam - Reviewed Nursing Documentation Reviewed: Yes Vital Signs Reviewed: Yes - Physical Exam Appears: Positive for: Non-toxic, No Acute Distress Head Exam: Positive for: ATRAUMATIC, NORMAL INSPECTION, NORMOCEPHALIC Skin: Positive for: Normal Color, Warm, DRY Eye Exam: Positive for: EOMI, Normal appearance, PERRL ENT: Positive for: Normal ENT Inspection Neck: Positive for: Normal, Painless ROM Cardiovascular/Chest: Positive for: Regular Rate, Rhythm Respiratory: Positive for: CNT, Normal Breath Sounds Gastrointestinal/Abdominal: Positive for: Soft. Negative for: Tenderness, Mass Back: Positive for: Normal Inspection. Negative for: L CVA Tenderness, R CVA Tenderness Extremity: Positive for: Normal ROM Neurologic/Psych: Positive for: Alert, Oriented - Laboratory Results Result Diagrams: 08/17/17 16:46 08/17/17 16:46 - ECG O2 Sat by Pulse Oximetry: 95 Disposition - Clinical Impression Clinical Impression: UTI (urinary tract infection) - Patient ED Disposition Is Patient to be Admitted: No - Disposition Referrals: [facility] [Outside] Disposition: Routine/Home Disposition Time: :18 Condition: FAIR Prescriptions: Sulfamethoxazole/Trimethoprim [Bactrim DS 800 mg-160 mg] 1 tab PO BID #20 tab Instructions: Urinary Tract Infections in Adults Forms: [facility] (Lithuanian)
[2017-08-17 16:11] LABS: SQUAMOUS EPITHIAL < 1 /hpf (0-5); URINE BILIRUBIN NEGATIVE (NEGATIVE); URINE BLOOD SMALL (NEGATIVE); URINE CLARITY CLEAR (Clear); URINE COLOR YELLOW (YELLOW); URINE GLUCOSE (UA) NEG (Normal); URINE HYALINE CAST 0-2 /hpf (0-2); URINE LEUKOCYTE ESTERASE TRACE Leu/uL (Negative); URINE PROTEIN 30 mg/dL (NEGATIVE); URINE UROBILINOGEN 0.2-1.0 mg/dL (0.2-1.0)
[2017-08-17 16:55] LABS: BASO # 0.1 K/uL (0.0-0.2); BASO % 0.8 % (0.0-2.0); EOS # 0.1 K/uL (0.0-0.7); HEMOGLOBIN 12.2 g/dL (12.0-16.0); LYMPH # 2.2 K/uL (1.0-4.3); LYMPH % 31.3 % (20.0-40.0); MEAN CELL VOLUME 88.2 fl (81.0-99.0); MEAN CORPUSCULAR HEMOGLOBIN 28.1 pg (27.0-31.0); MEAN CORPUSCULAR HGB CONC 31.8 g/dL (33.0-37.0); MEAN PLATELET VOLUME 8.2 fl (7.2-11.7); MONO # 0.6 K/uL (0.0-0.8); MONO % 8.3 % (0.0-10.0); NEUT # 4.1 K/uL (1.8-7.0); NEUT % 57.6 % (50.0-75.0); RBC 4.33 Mil/uL (3.80-5.20); RED CELL DISTRIBUTION WIDTH 13.7 % (11.5-14.5); WHITE BLOOD COUNT 7.1 K/uL (4.8-10.8)
[2017-08-17 17:09] LABS: ALB/GLOB RATIO 1.2 (1.0-2.1); ALBUMIN 3.8 g/dL (3.5-5.0); ALT/SGPT 31 U/L (9-52); AST/SGOT 29 U/L (14-36); BLOOD UREA NITROGEN 27 mg/dl (7-17); CALCIUM 9.2 mg/dL (8.4-10.2); GFR AFRICAN-AMERICAN > 60; GFR NON-AFRICAN AMERICAN > 60
[2017-08-17 17:41] VITALS: BP 128/76; PULSE 78; RESP 19; TEMP 97.6; O2SAT 98
== END 2017-08-17 17:41 | disposition home or self-care (01) ==
LOC: H.ER 14:41
DX: N39.0 Urinary tract infection, site not specified (principal); E78.00 Pure hypercholesterolemia, unspecified; F32.9 Major depressive disorder, single episode, unspecified; I10 Essential (primary) hypertension; Z79.82 Long term (current) use of aspirin

== ENCOUNTER 2017-10-13 10:07 | Emergency (ER) | payer MEDICARE, SELFPAY ==
[2017-10-13 10:14] VITALS: BMI 29.2
[2017-10-13] MEDS ORDERED: Sodium Chloride 0.9% 1,000 ML IV STA (10:52)
--- NOTE | 2017-10-13 10:52 | ED PDOC ---
HPI: Abdomen Time Seen by Provider: 10/13/17 10:30 Chief Complaint (Nursing): Abdominal Pain Chief Complaint (Provider): Abdominal discomfort History Per: Patient History/Exam Limitations: no limitations Additional Complaint(s): Pt reports burning sensation to abdomen X 3 days, intermittent, associated with nausea. Denies fever, vomiting, constipation, diarrhea, dysuria, hematuria. Pt took Prilosec at home without relief. Past Medical History Reviewed: Nursing Documentation, Vital Signs Vital Signs: Last Vital Signs Temp 97.8 F 10/13/17 15:36 Pulse 76 10/13/17 15:36 Resp 17 10/13/17 15:36 BP 128/76 10/13/17 15:36 Pulse Ox 99 10/13/17 15:36 - Medical History PMH: Arthritis, Depression, HTN, Hypercholesterolemia - Surgical History Surgical History: Cholecystectomy - Family History Family History: States: Unknown Family Hx - Living Arrangements Living Arrangements: With Family - Social History Current smoker - smoking cessation education provided: No Alcohol: None - Home Medications Home Medications: Ambulatory Orders Medication Instructions Recorded Calcium/Vitamin D [Calcium + D 600 1 tab PO BID 12/04/13 mg-200 Iu] Escitalopram [Lexapro] 10 mg PO DAILY 12/04/13 Lisinopril 10 mg PO DAILY 12/04/13 Omeprazole 40 mg PO DAILY 12/04/13 Simvastatin 20 mg PO DAILY 12/04/13 Albuterol 0.5% [Albuterol 0.5% 3 ml IH Q4H PRN #50 neb 01/27/16 Inhal Moraima (2.5 mg/0.5 ml) UD] Aspirin [Adult Low Dose Aspirin EC] 81 mg PO DAILY 02/02/17 Nitrofurantoin Macrocrystals 1 cap PO BID #14 cap 02/02/17 [Macrobid] Ranitidine HCl [Zantac 75] 1 tab PO DAILY 02/02/17 Ciprofloxacin HCl [Cipro] 500 mg PO BID #14 tablet 05/01/17 Dicyclomine [Dicyclomine HCl] 10 mg PO TID PRN #15 cap 05/01/17 Metronidazole [Flagyl] 500 mg PO BID #14 tablet 05/01/17 Pantoprazole Sodium [Protonix] 20 mg PO DAILY #30 ect 05/01/17 Ciprofloxacin HCl [Cipro] 250 mg PO BID #6 tab 07/19/17 Sulfamethoxazole/Trimethoprim 1 tab PO BID #20 tab 08/17/17 [Bactrim DS 800 mg-160 mg] Nitrofurantoin Macrocrystals 100 mg PO BID #14 cap 10/13/17 [Macrobid] - Allergies Allergies/Adverse Reactions: Allergies Allergy/AdvReac Type Severity Reaction Status Date / Time No Known Allergies Allergy Verified 01/27/16 17:42 Review of Systems Constitutional: Negative for: Fever, Chills Cardiovascular: Negative for: Chest Pain, Palpitations Respiratory: Negative for: Cough, Shortness of Breath Gastrointestinal: Positive for: Nausea, Abdominal Pain. Negative for: Vomiting , Diarrhea, Hematochezia, Hematemesis Genitourinary Female: Positive for: Incontinence. Negative for: Dysuria, Hematuria, Vaginal Discharge, Vaginal Bleeding Musculoskeletal: Negative for: Back Pain Skin: Negative for: Rash, Lesions Neurological: Negative for: Headache, Dizziness Physical Exam - Reviewed Nursing Documentation Reviewed: Yes Vital Signs Reviewed: Yes - Physical Exam Appears: Positive for: Well, No Acute Distress Head Exam: Positive for: ATRAUMATIC, NORMAL INSPECTION Skin: Positive for: Normal Color, Warm, Dry Eye Exam: Positive for: Normal appearance, EOMI, PERRL Cardiovascular/Chest: Positive for: Regular Rate, Rhythm Respiratory: Positive for: Normal Breath Sounds Gastrointestinal/Abdominal: Positive for: Normal Exam, Bowel Sounds, Soft. Negative for: Tenderness, Guarding, Rebound Back: Positive for: Normal Inspection. Negative for: L CVA Tenderness, R CVA Tenderness Extremity: Positive for: Normal ROM Neurologic/Psych: Positive for: Alert, Oriented - Laboratory Results Result Diagrams: 10/13/17 11:10 10/13/17 11:10 - ECG O2 Sat by Pulse Oximetry: 92 Medical Decision Making Medical Decision Makin yo female with abdominal burning. - labs - EKG - IVF - Zofran Disposition - Clinical Impression Clinical Impression: UTI (urinary tract infection) - Disposition Referrals: Lydia Yee MD [Primary Care Provider] - Disposition: Routine/Home Disposition Time: 14:35 Condition: STABLE Prescriptions: Nitrofurantoin Macrocrystals [Macrobid] 100 mg PO BID #14 cap Instructions: Urinary Tract Infections in Adults Forms: [employer] (Beninese)
[2017-10-13 11:20] LABS: BASO % 0.4 % (0.0-2.0); EOS # 0.1 K/uL (0.0-0.7); EOS % 1.1 % (0.0-4.0); HEMOGLOBIN 14.5 g/dL (12.0-16.0); LYMPH # 1.9 K/uL (1.0-4.3); LYMPH % 28.3 % (20.0-40.0); MEAN CELL VOLUME 87.5 fl (81.0-99.0); MEAN CORPUSCULAR HEMOGLOBIN 28.6 pg (27.0-31.0); MEAN CORPUSCULAR HGB CONC 32.7 g/dL (33.0-37.0); MONO # 0.4 K/uL (0.0-0.8); MONO % 6.8 % (0.0-10.0); NEUT # 4.2 K/uL (1.8-7.0); NEUT % 63.4 % (50.0-75.0); NRBC % 0.1 % (0.0-0.0); RBC 5.06 Mil/uL (3.80-5.20); WHITE BLOOD COUNT 6.6 K/uL (4.8-10.8)
[2017-10-13 11:26] LABS: ALB/GLOB RATIO 1.3 (1.0-2.1); ALBUMIN 4.5 g/dL (3.5-5.0); CALCIUM 9.9 mg/dL (8.4-10.2); GFR AFRICAN-AMERICAN > 60; GFR NON-AFRICAN AMERICAN > 60; LIPASE 85 U/L (23-300)
[2017-10-13 11:34] LABS: PROTHROMBIN TIME 10.8 Seconds (9.8-13.1)
[2017-10-13 11:37] LABS: PARTIAL THROMBOPLASTIN TIME 31.6 Seconds (25.6-37.1)
[2017-10-13 11:43] LABS: ALT/SGPT 25 U/L (9-52); AST/SGOT 46 U/L (14-36); BLOOD UREA NITROGEN 20 mg/dl (7-17)
[2017-10-13 11:55] LABS: SQUAMOUS EPITHIAL 1 /hpf (0-5); URINE BILIRUBIN NEGATIVE (NEGATIVE); URINE BLOOD SMALL (NEGATIVE); URINE CLARITY SLIGHTY-CLOUDY (Clear); URINE COLOR YELLOW (YELLOW); URINE GLUCOSE (UA) NEG (Normal); URINE LEUKOCYTE ESTERASE TRACE Leu/uL (Negative); URINE PROTEIN NEGATIVE (NEGATIVE)
[2017-10-13] MEDS ORDERED: cefTRIAXone (Rocephin) 1 gm Inj ONE (12:43)
[2017-10-13] MEDS ORDERED: Iohexol 300 100 ML IJ ONE (12:50)
[2017-10-13] MEDS ORDERED: Sodium Chloride 0.9% 50 ML IV ONE (12:50)
--- NOTE | 2017-10-13 13:48 | CT ---
Date of service: 10/13/2017 PROCEDURE: CT Abdomen and Pelvis with contrast HISTORY: Abd pain COMPARISON: CT scan the abdomen pelvis dated 05/01/2017 TECHNIQUE: Contrast dose: 95 mL Omnipaque 300 Radiation dose: Total exam DLP = 464.9 mGy-cm. This CT exam was performed using one or more of the following dose reduction techniques: Automated exposure control, adjustment of the mA and/or kV according to patient size, and/or use of iterative reconstruction technique. FINDINGS: LOWER THORAX: Unremarkable. LIVER: Hepatic steatosis. No gross lesion or ductal dilatation. GALLBLADDER AND BILE DUCTS: Unremarkable. PANCREAS: Unremarkable. No gross lesion or ductal dilatation. SPLEEN: Multiple splenic simple and calcified cysts redemonstrated. ADRENALS: Unremarkable. No mass. KIDNEYS AND URETERS: Stable right renal cyst. No hydronephrosis. No solid mass. VASCULATURE: Unremarkable. No aortic aneurysm. BOWEL: Extensive predominant sigmoid diverticulosis with chronic wall thickening related to muscular hypertrophy. No obstruction. No gross mural thickening. APPENDIX: Normal appendix. PERITONEUM: Unremarkable. No free fluid. No free air. LYMPH NODES: Unremarkable. No enlarged lymph nodes. BLADDER: Unremarkable. REPRODUCTIVE: Unremarkable. BONES: No acute fracture. Severe scoliosis. Prior right hip arthroplasty. OTHER FINDINGS: None. IMPRESSION: No acute abdominal pelvic pathology. Multiple chronic stable findings as above.
[2017-10-13 15:38] VITALS: BP 128/76; PULSE 76; RESP 17; TEMP 97.8
--- NOTE | 2017-10-13 18:17 | CARD ---
APPROVED REPORT Date of service: 10/13/2017 EKG Measurement Heart [id number] <Conclusion> Normal sinus rhythm Normal ECG
[2017-10-15 09:23] VITALS: O2SAT 92
== END 2017-10-13 15:43 | disposition home or self-care (01) ==
LOC: SUPCPDRO 10:07 → H.ER 10:07
DX: N39.0 Urinary tract infection, site not specified (principal); E78.00 Pure hypercholesterolemia, unspecified; F32.9 Major depressive disorder, single episode, unspecified; I10 Essential (primary) hypertension; Z79.82 Long term (current) use of aspirin
CPT/HCPCS: 74177; 80053; 81003; 83690; 85025; 85610; 85730; 93005; 96374; 96375; 99283; J0696; J2405; J7030; Q9967

== ENCOUNTER 2017-10-31 09:51 | Emergency (ER) | payer MEDICARE, SELFPAY ==
[2017-10-31 09:51] VITALS: BMI 29.2
[2017-10-31 10:22] VITALS: BP 122/79; PULSE 74; RESP 20; TEMP 97; O2SAT 98
[2017-10-31] MEDS ORDERED: Sodium Chloride 0.9% 1,000 ML IV STA (10:43)
--- NOTE | 2017-10-31 10:58 | RAD ---
Date of service: 10/31/2017 HISTORY: epigastric pain COMPARISON: 07/19/2017. FINDINGS: LUNGS: There are low lung volumes. PLEURA: No significant pleural effusion identified, no pneumothorax apparent. CARDIOVASCULAR: Persistent mild cardiomegaly. There is unfolding of the aorta. OSSEOUS STRUCTURES: There is severe levoscoliosis in the thoracic spine. VISUALIZED UPPER ABDOMEN: Normal. OTHER FINDINGS: None. IMPRESSION: No acute findings. Low lung volumes may be related to poor inspiratory effort.
[2017-10-31 11:01] LABS: BASO % 0.5 % (0.0-2.0); EOS # 0.1 K/uL (0.0-0.7); EOS % 1.5 % (0.0-4.0); HEMOGLOBIN 13.9 g/dL (12.0-16.0); LYMPH # 1.7 K/uL (1.0-4.3); LYMPH % 30.1 % (20.0-40.0); MEAN CELL VOLUME 86.5 fl (81.0-99.0); MEAN CORPUSCULAR HEMOGLOBIN 28.6 pg (27.0-31.0); MEAN CORPUSCULAR HGB CONC 33.1 g/dL (33.0-37.0); MEAN PLATELET VOLUME 8.1 fl (7.2-11.7); MONO # 0.4 K/uL (0.0-0.8); MONO % 6.6 % (0.0-10.0); NEUT # 3.4 K/uL (1.8-7.0); NEUT % 61.3 % (50.0-75.0); NRBC % 0.1 % (0.0-0.0); RBC 4.84 Mil/uL (3.80-5.20); WHITE BLOOD COUNT 5.6 K/uL (4.8-10.8)
--- NOTE | 2017-10-31 11:11 | ED PDOC ---
HPI: Abdomen Chief Complaint (Provider): Abdominal discomfort History Per: Patient History/Exam Limitations: no limitations Onset/Duration Of Symptoms: Persistent Outside of [place] travel?: No Current Symptoms Are (Timing): Still Present Context: Food Severity: Mild Location Of Pain/Discomfort: Diffuse, Epigastric Associated Symptoms: Diarrhea, Loss Of Appetite Exacerbating Factors: Food Alleviating Factors: Other (in between meals) Last Bowel Movement: Yesterday Additional History Per: Family (daughter) Abnormal Vaginal Bleeding: No <Chaz Estrada - Last Filed: 10/31/17 11:30> <David Cleary - Last Filed: 10/31/17 13:59> Time Seen by Provider: 10/31/17 10:07 Chief Complaint (Nursing): Abdominal Pain Additional Complaint(s): Tamara is an 82 yo F with pmhx of hiatal hernia, htn, and dyslipidemia presents to ED with epigastric discomfor and diarrhea. Epigastric discomfort has been consisent on a daily basiss since dx of hiaal hernia 10+ years ago. She specifically denies pain, she reports discomfort but unable to specifically describe the sensation. Symptoms have radiated diffusely throughout the abdomen. Associated with nausea. Symptoms are aggravated with meals. Slightly alleviated with omeprazole or pepcid. She denies vomiting, CP/ SOB. Diarrhea: began 2 days ago. light green in color. Denies new diet, foods, recent travel, sick contacts, or history of green diarrhea. PMD: Dr. Yee pmhx: hiatal hernia, htn, and dyslipidemia; multiple history of UTI treated with abx surghx: cholecystectomy 2002; Hips famhx: htn soc: Denies smoking, illicit drugs, alcohol Lives with granddaughter Allergy: Sulfa drugs: vomiting Meds: Simvasatin, Pepcid (Chaz Estrada) CT recently with no findings. (David Cleary) Supervising Attending Note <Chaz Estrada - Last Filed: 10/31/17 11:30> - Supervising Attending Note The Documented history was done by the: Physician Foundry Superintendant The documented physical exam was done by the: Physician Foundry Superintendant The documented procedures were done by the: Physician Foundry Superintendant - Attestation: I have personally seen and examined this patient.: Yes I have fully participated in the care of the patient.: Yes I have reviewed all pertinent clinical information: Yes <David Cleary - Last Filed: 10/31/17 13:59> - Notes: Notes:: abd pain, same for a long time. Diarrhea. (David Cleary) Past Medical History - Medical History PMH: Arthritis, Depression, HTN, Hypercholesterolemia Denies: Anemia, Anxiety, Atrial Fibrillation, Bipolar Disorder, CAD, Cardia Arrhythmia, CHF, Crohn's Disease, Diverticulitis, Fractures, Gastritis, Gall Bladder Disease, HIV, Mitral Valve Prolapse, Osteoporosis, Pancreatitis, Paranoia, Peripheral Edema, Post Traumatic Stress Disorder, Chronic Kidney Disease, Rheumatoid Arthritis, Schizophrenia, Sickle Cell Disease - Surgical History Surgical History: Cholecystectomy Denies: Appendectomy, CABG, Carotid Endarterectomy, Coronary Stent, Pacemaker , Tonsillectomy - Family History Family History: States: Hypertension - Living Arrangements Living Arrangements: With Family (granddaughter) - Social History Current smoker - smoking cessation education provided: No Alcohol: None Drugs: Denies - Immunization History Hx Tetanus Toxoid Vaccination: No Hx Influenza Vaccination: No Hx Pneumococcal Vaccination: No <Chaz Estrada - Last Filed: 10/31/17 11:30> <David Cleary - Last Filed: 10/31/17 13:59> Vital Signs: Last Vital Signs Temp 97 F L 10/31/17 10:19 Pulse 74 10/31/17 10:19 Resp 20 10/31/17 10:19 BP 122/79 10/31/17 10:19 Pulse Ox 98 10/31/17 11:31 - Home Medications Home Medications: Ambulatory Orders Medication Instructions Recorded Calcium/Vitamin D [Calcium + D 600 1 tab PO BID 12/04/13 mg-200 Iu] Escitalopram [Lexapro] 10 mg PO DAILY 12/04/13 Lisinopril 10 mg PO DAILY 12/04/13 Omeprazole 40 mg PO DAILY 12/04/13 Simvastatin 20 mg PO DAILY 12/04/13 Albuterol 0.5% [Albuterol 0.5% 3 ml IH Q4H PRN #50 neb 01/27/16 Inhal Moraima (2.5 mg/0.5 ml) UD] Aspirin [Adult Low Dose Aspirin EC] 81 mg PO DAILY 02/02/17 Nitrofurantoin Macrocrystals 1 cap PO BID #14 cap 02/02/17 [Macrobid] Ranitidine HCl [Zantac 75] 1 tab PO DAILY 02/02/17 Ciprofloxacin HCl [Cipro] 500 mg PO BID #14 tablet 05/01/17 Dicyclomine [Dicyclomine HCl] 10 mg PO TID PRN #15 cap 05/01/17 Metronidazole [Flagyl] 500 mg PO BID #14 tablet 05/01/17 Pantoprazole Sodium [Protonix] 20 mg PO DAILY #30 ect 05/01/17 Ciprofloxacin HCl [Cipro] 250 mg PO BID #6 tab 07/19/17 Sulfamethoxazole/Trimethoprim 1 tab PO BID #20 tab 08/17/17 [Bactrim DS 800 mg-160 mg] Nitrofurantoin Macrocrystals 100 mg PO BID #14 cap 10/13/17 [Macrobid] - Allergies Allergies/Adverse Reactions: Allergies Allergy/AdvReac Type Severity Reaction Status Date / Time Sulfa (Sulfonamide AdvReac VOMITING Verified 10/31/17 11:28 Antibiotics) Review of Systems Constitutional: Negative for: Fever, Chills Cardiovascular: Negative for: Chest Pain Respiratory: Negative for: Shortness of Breath Gastrointestinal: Positive for: Nausea, Diarrhea. Negative for: Vomiting, Melena, Hematochezia Genitourinary Female: Negative for: Dysuria, Hematuria, Vaginal Bleeding Neurological: Negative for: Altered Mental Status <Thanh Estradaang - Last Filed: 10/31/17 11:30> Physical Exam - Reviewed Vital Signs Reviewed: Yes - Physical Exam Appears: Positive for: Well, No Acute Distress Head Exam: Positive for: ATRAUMATIC Eye Exam: Positive for: EOMI Neck: Positive for: Painless ROM Cardiovascular/Chest: Positive for: Regular Rate, Rhythm. Negative for: Murmur Respiratory: Positive for: Normal Breath Sounds. Negative for: Wheezing Gastrointestinal/Abdominal: Positive for: Normal Exam, Bowel Sounds, Soft. Negative for: Tenderness, Distended Extremity: Negative for: Calf Tenderness Neurologic/Psych: Positive for: Alert, operations manager assistant II-XII, Oriented <Chaz Estrada Last Filed: 10/31/17 11:30> - Physical Exam Gastrointestinal/Abdominal: Positive for: Soft. Negative for: Tenderness Back: Positive for: Normal Inspection. Negative for: L CVA Tenderness, R CVA Tenderness Neurologic/Psych: Positive for: Alert, Oriented <David Cleary - Last Filed: 10/31/17 13:59> - Laboratory Results Result Diagrams: 10/31/17 10:50 - ECG O2 Sat by Pulse Oximetry: 98 <EstradaChaz - Last Filed: 10/31/17 11:30> - Laboratory Results Result Diagrams: 10/31/17 10:50 10/31/17 10:50 Interpretation Of Abn Labs: no acute - ECG Pulse Ox Interpretation: Normal <David Cleary - Last Filed: 10/31/17 13:59> - Progress ED Course And Treament: 82 yo F with pmhx of hiatal hernia, htn, and dyslipidemia presents with chronic history of daily epigastric abdominal discomfort. -CT abdomen and pelvis reviewed from 10/13/2017 -ECG -CBC, CMP, UA, lipase, troponin -1 L NS, pepcid Pt has appt with Dr. Peres on 11/11/2017 for further evaluation Case dw Dr. Madiha Estrada MD PGY2 (Chaz Estrada) 1357: Stable. AAOx3. Pain free. Tolerated po. Fu with pcp. (David Cleary) Disposition <Chaz Estrada - Last Filed: 10/31/17 11:30> - Patient ED Disposition Is Patient to be Admitted: No Counseled Patient/Family Regarding: Studies Performed, Diagnosis, Need For Followup - Disposition Disposition: Routine/Home Disposition Time: 13:58 <David Cleary - Last Filed: 10/31/17 13:59> - Clinical Impression Clinical Impression: Abdominal pain - Disposition Referrals: [facility] [Outside] - 11/01/17 Condition: STABLE Additional Instructions: Return if not better in 3 days. Instructions: Stomach Ache and Stomach Upset
[2017-10-31 11:35] LABS: ALB/GLOB RATIO 1.3 (1.0-2.1); ALBUMIN 4.1 g/dL (3.5-5.0); ALT/SGPT 29 U/L (9-52); AST/SGOT 33 U/L (14-36); BLOOD UREA NITROGEN 19 mg/dl (7-17); CALCIUM 9.7 mg/dL (8.4-10.2); GFR NON-AFRICAN AMERICAN > 60; LIPASE 90 U/L (23-300)
--- NOTE | 2017-11-01 06:42 | CARD ---
APPROVED REPORT Date of service: 10/31/2017 <Conclusion> Normal sinus rhythm Normal ECG
== END 2017-10-31 14:03 | disposition home or self-care (01) ==
LOC: H.ER 09:51
DX: R10.13 Epigastric pain (principal); E78.00 Pure hypercholesterolemia, unspecified; F32.9 Major depressive disorder, single episode, unspecified; I10 Essential (primary) hypertension; Z88.2 Allergy status to sulfonamides; K44.9 Diaphragmatic hernia without obstruction or gangrene
CPT/HCPCS: 71045; 80053; 83690; 84484; 85025; 93005; 96374; 99283; J2405; J7030

== ENCOUNTER 2017-11-29 18:08 | Emergency (ER) | payer MEDICARE, SELFPAY ==
[2017-11-29 18:08] VITALS: BMI 29.2
--- NOTE | 2017-11-29 20:16 | ED PDOC ---
History of Present Illness History of Present Illness: Hx of HTN, GERD presenting with cough x 1 week, states its worse at night, nonproductive, not associated with fevers, sweats, chills, weight loss. States she has been prescribed Mucinex by her PMD Dr. Yee without any relief. No nausea, vomiting, chest pain, shortness of breath. PMD: [facility] Clinic Dr. Yee HPI: Influenza Time Seen by Provider: 11/29/17 19:07 Chief Complaint: Cough, Cold, Congestion History Per: Patient, Family Exam Limitations: no limitations Onset/Duration Of Symptoms: Days Symptoms include: denies: fever, headache Sick Contacts (Context): None Past Medical History Vital Signs: Last Vital Signs Temp 98.0 F 11/29/17 18:18 Pulse 81 11/29/17 18:18 Resp 18 11/29/17 18:18 BP 147/84 11/29/17 18:18 Pulse Ox 96 11/29/17 18:18 - Medical History PMH: Arthritis, Depression, HTN, Hypercholesterolemia Denies: Anemia, Anxiety, Atrial Fibrillation, Bipolar Disorder, CAD, Cardia Arrhythmia, CHF, Crohn's Disease, Diverticulitis, Fractures, Gastritis, Gall Bladder Disease, HIV, Mitral Valve Prolapse, Osteoporosis, Pancreatitis, Paranoia, Peripheral Edema, Post Traumatic Stress Disorder, Chronic Kidney Disease, Rheumatoid Arthritis, Schizophrenia, Sickle Cell Disease - Surgical History Surgical History: Cholecystectomy Denies: Appendectomy, CABG, Carotid Endarterectomy, Coronary Stent, Pacemaker, Tonsillectomy - Family History Family History: States: Unknown Family Hx, Hypertension - Immunization History Hx Tetanus Toxoid Vaccination: No Hx Influenza Vaccination: No Hx Pneumococcal Vaccination: No - Home Medications Home Medications: Ambulatory Orders Medication Instructions Recorded Calcium/Vitamin D [Calcium + D 600 1 tab PO BID 12/04/13 mg-200 Iu] Escitalopram [Lexapro] 10 mg PO DAILY 12/04/13 Lisinopril 10 mg PO DAILY 12/04/13 Omeprazole 40 mg PO DAILY 12/04/13 Simvastatin 20 mg PO DAILY 12/04/13 Albuterol 0.5% [Albuterol 0.5% 3 ml IH Q4H PRN #50 neb 01/27/16 Inhal Moraima (2.5 mg/0.5 ml) UD] Aspirin [Adult Low Dose Aspirin EC] 81 mg PO DAILY 02/02/17 Nitrofurantoin Macrocrystals 1 cap PO BID #14 cap 02/02/17 [Macrobid] Ranitidine HCl [Zantac 75] 1 tab PO DAILY 02/02/17 Ciprofloxacin HCl [Cipro] 500 mg PO BID #14 tablet 05/01/17 Dicyclomine [Dicyclomine HCl] 10 mg PO TID PRN #15 cap 05/01/17 Metronidazole [Flagyl] 500 mg PO BID #14 tablet 05/01/17 Pantoprazole Sodium [Protonix] 20 mg PO DAILY #30 ect 05/01/17 Ciprofloxacin HCl [Cipro] 250 mg PO BID #6 tab 07/19/17 Sulfamethoxazole/Trimethoprim 1 tab PO BID #20 tab 08/17/17 [Bactrim DS 800 mg-160 mg] Nitrofurantoin Macrocrystals 100 mg PO BID #14 cap 10/13/17 [Macrobid] Albuterol HFA [Ventolin HFA 90 2 puff IH [id number] #1 puff 11/29/17 mcg/actuation (8 g)] Prednisone [Deltasone] 40 mg PO DAILY 4 Days #8 tablet 11/29/17 - Allergies Allergies/Adverse Reactions: Allergies Allergy/AdvReac Type Severity Reaction Status Date / Time Sulfa (Sulfonamide AdvReac VOMITING Verified 10/31/17 11:28 Antibiotics) Review of Systems ROS Statement: Except As Marked, All Systems Reviewed And Found Negative Respiratory: Positive for: Cough. Negative for: Shortness of Breath, Hemoptysis, SOB with Exertion, Pleuritic Pain Physical Exam - Reviewed Nursing Documentation Reviewed: Yes Vital Signs Reviewed: Yes - Physical Exam Appears: Positive for: Well, Non-toxic, No Acute Distress Head Exam: Positive for: ATRAUMATIC, NORMAL INSPECTION, NORMOCEPHALIC Skin: Positive for: Normal Color, Warm, DRY Eye Exam: Positive for: EOMI, Normal appearance, PERRL ENT: Positive for: Normal ENT Inspection Neck: Positive for: Normal, Painless ROM Cardiovascular/Chest: Positive for: Regular Rate, Rhythm Respiratory: Positive for: Normal Breath Sounds. Negative for: Decreased Breath Sounds, Accessory Muscle Use, Crackles, Rales, Rhonchi Gastrointestinal/Abdominal: Positive for: Normal Exam, Soft Back: Positive for: Normal Inspection Extremity: Positive for: Normal ROM Neurologic/Psych: Positive for: Alert, Oriented Medical Decision Making Medical Decision MakinPM Hx of HTN, GERD presenting with cough --Patient states this happens this time of the year every year, possibly allergic bronchitis --Will get CXR to r/o PNA --STeroids for reactive airway 8PM --CXR appears unchanged from prior --Advised patient to take prednisone and followup with PMD in 2 - 3 days for recheck --Very well appearing, stable vitals, no coughing in ER. Suitable for outpati ent followup - ECG O2 Sat by Pulse Oximetry: 96 Disposition - Clinical Impression Clinical Impression: Cough - Disposition Referrals: Joselito Pérez,Lydia Estrada MD [Family Provider] - Disposition: Routine/Home Disposition Time: 20:22 Condition: STABLE Prescriptions: Albuterol HFA [Ventolin HFA 90 mcg/actuation (8 g)] 2 puff IH [id number] #1 puff Prednisone [Deltasone] 40 mg PO DAILY 4 Days #8 tablet Instructions: Acute Bronchitis, Cough in Adults Forms: [facility] (Latvian)
[2017-11-29 22:39] VITALS: BP 130/76; PULSE 78; RESP 20; TEMP 98; O2SAT 98
--- NOTE | 2017-11-30 08:54 | RAD ---
Date of service: 11/29/2017 HISTORY: cough COMPARISON: Chest radiograph dated 10/31/2017. TECHNIQUE: Chest PA and lateral FINDINGS: LUNGS: No active pulmonary disease. PLEURA: No significant pleural effusion identified. No pneumothorax apparent. CARDIOVASCULAR: Cardiomediastinal silhouette unchanged with extremely tortuous thoracic aorta. OSSEOUS STRUCTURES: Unchanged. VISUALIZED UPPER ABDOMEN: Normal. OTHER FINDINGS: None. IMPRESSION: No active disease.
== END 2017-11-29 21:17 | disposition home or self-care (01) ==
LOC: H.ER 18:08
DX: R05 Cough (principal); E78.00 Pure hypercholesterolemia, unspecified; I10 Essential (primary) hypertension; K21.9 Gastro-esophageal reflux disease without esophagitis

== ENCOUNTER 2017-12-11 14:48 | Emergency (ER) | payer MEDICARE, OTHER ==
[2017-12-11 14:48] VITALS: BMI 29.2
[2017-12-11 15:05] VITALS: BP 129/82; PULSE 81; RESP 20; TEMP 98.2; O2SAT 94
[2017-12-11] MEDS ORDERED: Sodium Chloride 0.9% 1,000 ML IV STA (15:31)
--- NOTE | 2017-12-11 16:03 | ED PDOC ---
HPI: Abdomen Time Seen by Provider: 12/11/17 15:15 Chief Complaint (Nursing): Abdominal Pain Chief Complaint (Provider): Abdominal Pain History Per: Patient History/Exam Limitations: no limitations Onset/Duration Of Symptoms: Days (x2) Current Symptoms Are (Timing): Still Present Additional Complaint(s): 82 y/o female with a PMHx of HTN and hypercholesterolemia presents to the ED for evaluation of intermittent abdominal pain associated with nausea and one episode of diarrhea, onset 2 days ago. Patient additionally reports of taking Tylenol with some relief of pain. Otherwise denies dysuria, hematuria, vomiting and fever. PMD: Lydia Apodaca Past Medical History Reviewed: Historical Data, Nursing Documentation, Vital Signs Vital Signs: Last Vital Signs Temp 98.2 F 12/11/17 15:03 Pulse 81 12/11/17 15:03 Resp 20 12/11/17 15:03 BP 129/82 12/11/17 15:03 Pulse Ox 94 L 12/11/17 15:03 - Medical History PMH: Arthritis, Depression, HTN, Hypercholesterolemia Denies: Anemia, Anxiety, Atrial Fibrillation, Bipolar Disorder, CAD, Cardia Arrhythmia, CHF, Crohn's Disease, Diverticulitis, Fractures, Gastritis, Gall Bladder Disease, HIV, Mitral Valve Prolapse, Osteoporosis, Pancreatitis, Paranoia, Peripheral Edema, Post Traumatic Stress Disorder, Chronic Kidney Disease, Rheumatoid Arthritis, Schizophrenia, Sickle Cell Disease - Surgical History Surgical History: Cholecystectomy Denies: Appendectomy, CABG, Carotid Endarterectomy, Coronary Stent, Pacemaker, Tonsillectomy - Family History Family History: States: Unknown Family Hx, Hypertension - Immunization History Hx Tetanus Toxoid Vaccination: No Hx Influenza Vaccination: No Hx Pneumococcal Vaccination: No - Home Medications Home Medications: Ambulatory Orders Medication Instructions Recorded Calcium/Vitamin D [Calcium + D 600 1 tab PO BID 12/04/13 mg-200 Iu] Escitalopram [Lexapro] 10 mg PO DAILY 12/04/13 Lisinopril 10 mg PO DAILY 12/04/13 Omeprazole 40 mg PO DAILY 12/04/13 Simvastatin 20 mg PO DAILY 12/04/13 Albuterol 0.5% [Albuterol 0.5% 3 ml IH Q4H PRN #50 neb 01/27/16 Inhal Moraima (2.5 mg/0.5 ml) UD] Aspirin [Adult Low Dose Aspirin EC] 81 mg PO DAILY 02/02/17 Nitrofurantoin Macrocrystals 1 cap PO BID #14 cap 02/02/17 [Macrobid] Ranitidine HCl [Zantac 75] 1 tab PO DAILY 02/02/17 Ciprofloxacin HCl [Cipro] 500 mg PO BID #14 tablet 05/01/17 Dicyclomine [Dicyclomine HCl] 10 mg PO TID PRN #15 cap 05/01/17 Metronidazole [Flagyl] 500 mg PO BID #14 tablet 05/01/17 Pantoprazole Sodium [Protonix] 20 mg PO DAILY #30 ect 05/01/17 Ciprofloxacin HCl [Cipro] 250 mg PO BID #6 tab 07/19/17 Sulfamethoxazole/Trimethoprim 1 tab PO BID #20 tab 08/17/17 [Bactrim DS 800 mg-160 mg] Nitrofurantoin Macrocrystals 100 mg PO BID #14 cap 10/13/17 [Macrobid] Albuterol HFA [Ventolin HFA 90 2 puff IH [id number] #1 puff 11/29/17 mcg/actuation (8 g)] Prednisone [Deltasone] 40 mg PO DAILY 4 Days #8 tablet 11/29/17 Nitrofurantoin Macrocrystals 100 mg PO BID #13 cap 12/11/17 [Macrobid] Phenazopyridine [Pyridium] 200 mg PO TID PRN #6 tab 12/11/17 - Allergies Allergies/Adverse Reactions: Allergies Allergy/AdvReac Type Severity Reaction Status Date / Time Sulfa (Sulfonamide AdvReac VOMITING Verified 12/11/17 15:02 Antibiotics) Review of Systems ROS Statement: Except As Marked, All Systems Reviewed And Found Negative Gastrointestinal: Positive for: Nausea, Abdominal Pain, Diarrhea (one episode) Physical Exam - Reviewed Nursing Documentation Reviewed: Yes Vital Signs Reviewed: Yes - Physical Exam Appears: Positive for: No Acute Distress Head Exam: Positive for: ATRAUMATIC, NORMOCEPHALIC Skin: Positive for: Normal Color, Warm, Dry Eye Exam: Positive for: Normal appearance, EOMI Neck: Positive for: Normal, Painless ROM Cardiovascular/Chest: Positive for: Regular Rate, Rhythm. Negative for: Murmur Respiratory: Positive for: Normal Breath Sounds. Negative for: Respiratory Distress Gastrointestinal/Abdominal: Positive for: Normal Exam, Soft. Negative for: Tenderness Back: Positive for: Normal Inspection. Negative for: L CVA Tenderness, R CVA Tenderness, Vertebral Tenderness Extremity: Positive for: Normal ROM. Negative for: Pedal Edema, Deformity Neurologic/Psych: Positive for: Alert, Oriented. Negative for: Motor/Sensory Deficits - Laboratory Results Result Diagrams: 12/11/17 16:07 12/11/17 16:07 - ECG O2 Sat by Pulse Oximetry: 94 (RA) Pulse Ox Interpretation: Normal Medical Decision Making Medical Decision Making: Time: 1539 Impression: Abdominal Pain Differentials include but not limited to gastroenteritis. Plan: -- CT Abd/ Pelvis IV Contrast -- EKG -- CMP -- Lipase -- ED Urine Dipstick -- CBC with differentials -- PTT -- Prothrombin Time -- CXR Two Views -- Sodium Chloride IV 100 mls/hr -- Zofran Inj 4 mg IV -- Urinalysis Pt refused CT abd/pelvis. Scribe Attestation: Documented by Audrey Santos, acting as a scribe for Norma Choi MD. Provider Scribe Attestation: All medical record entries made by the Scribe were at my direction and personally dictated by me. I have reviewed the chart and agree that the record accurately reflects my personal performance of the history, physical exam, medical decision making, and the department course for this patient. I have also personally directed, reviewed, and agree with the discharge instructions and disposition. Disposition - Clinical Impression Clinical Impression: UTI (urinary tract infection) - Disposition Referrals: [facility] [Outside] Disposition Time: 17:49 Condition: STABLE Prescriptions: Nitrofurantoin Macrocrystals [Macrobid] 100 mg PO BID #13 cap Phenazopyridine [Pyridium] 200 mg PO TID PRN #6 tab PRN Reason: Bladder Spasm Instructions: Urinary Tract Infections in Adults Forms: [employer] (Samoan)
[2017-12-11 16:12] LABS: BASO % 0.6 % (0.0-2.0); EOS # 0.1 K/uL (0.0-0.7); EOS % 1.5 % (0.0-4.0); HEMOGLOBIN 12.7 g/dL (12.0-16.0); LYMPH # 1.8 K/uL (1.0-4.3); LYMPH % 26.3 % (20.0-40.0); MEAN CELL VOLUME 87.1 fl (81.0-99.0); MEAN CORPUSCULAR HEMOGLOBIN 28.4 pg (27.0-31.0); MEAN CORPUSCULAR HGB CONC 32.6 g/dL (33.0-37.0); MONO # 0.6 K/uL (0.0-0.8); MONO % 8.3 % (0.0-10.0); NEUT # 4.3 K/uL (1.8-7.0); NEUT % 63.3 % (50.0-75.0); RBC 4.49 Mil/uL (3.80-5.20); WHITE BLOOD COUNT 6.8 K/uL (4.8-10.8)
[2017-12-11 16:22] LABS: INR 1.1; PROTHROMBIN TIME 11.8 Seconds (9.8-13.1)
[2017-12-11 16:25] LABS: PARTIAL THROMBOPLASTIN TIME 33.1 Seconds (25.6-37.1)
[2017-12-11 16:29] LABS: ALBUMIN 3.5 g/dL (3.5-5.0); ALT/SGPT 23 U/L (9-52); AST/SGOT 25 U/L (14-36); BLOOD UREA NITROGEN 15 mg/dl (7-17); CALCIUM 9.1 mg/dL (8.4-10.2); GFR NON-AFRICAN AMERICAN > 60; LIPASE 57 U/L (23-300)
[2017-12-11] MEDS ORDERED: Sodium Chloride 0.9% 0 ML IV ONE (16:39)
[2017-12-11] MEDS ORDERED: Iohexol 300 100 ML IJ ONE (16:39)
--- NOTE | 2017-12-11 17:21 | RAD ---
HISTORY: Abdominal pain COMPARISON: 11/29/2017. TECHNIQUE: Chest PA and lateral FINDINGS: LINES AND TUBES: None. LUNG AND PLEURA: There are low lung volumes. There is atelectasis/scarring in the lower lobes. No pleural effusion or pneumothorax. HEART AND MEDIASTINUM: The heart is not enlarged. The hilar and mediastinal contours are within normal limits. SKELETAL STRUCTURES: There is severe levoscoliosis in the thoracic spine.. VISUALIZED UPPER ABDOMEN: Normal. OTHER FINDINGS: None. IMPRESSION: Low lung volumes. No acute findings.
[2017-12-11 17:28] LABS: SQUAMOUS EPITHIAL 4 /hpf (0-5); URINE BACTERIA RARE (<OCC); URINE BILIRUBIN NEGATIVE (NEGATIVE); URINE BLOOD MODERATE (NEGATIVE); URINE CLARITY CLEAR (Clear); URINE COLOR YELLOW (YELLOW); URINE GLUCOSE (UA) NEG (Normal); URINE LEUKOCYTE ESTERASE TRACE Leu/uL (Negative); URINE PROTEIN NEGATIVE (NEGATIVE)
== END 2017-12-11 18:11 | disposition home or self-care (01) ==
LOC: H.ER 14:48
DX: N39.0 Urinary tract infection, site not specified (principal); E78.00 Pure hypercholesterolemia, unspecified; Z88.2 Allergy status to sulfonamides; I10 Essential (primary) hypertension
CPT/HCPCS: 71046; 80053; 81003; 83690; 85025; 85610; 85730; 87086; 96374; 99284; J2405; J7030

== ENCOUNTER 2017-12-21 13:55 | Emergency (ER) | payer MEDICARE ==
[2017-12-21 13:56] VITALS: BMI 29.2
[2017-12-21 14:33] VITALS: BP 114/72; PULSE 88; RESP 18; TEMP 98; O2SAT 95
[2017-12-21] MEDS ORDERED: Sodium Chloride 0.9% 500 ML IV STA (14:52)
--- NOTE | 2017-12-21 14:57 | ED PDOC ---
HPI: Abdomen Time Seen by Provider: 12/21/17 14:20 Chief Complaint (Nursing): Abdominal Pain Chief Complaint (Provider): Abd pain History Per: Patient History/Exam Limitations: no limitations Onset/Duration Of Symptoms: Days (yesterday) Additional Complaint(s): Pt. with abd pain diffuse. States same as many times before. Last was 1 week ago and dx with uti. Took the antibiotics and got better. No nausea, vomit, diarrhea, dysuria, weakness, headaches, dizziness, chest pain, fever, cough. No back pain. Past Medical History Reviewed: Nursing Documentation, Vital Signs Vital Signs: Last Vital Signs Temp 98 F 12/21/17 14:29 Pulse 88 12/21/17 14:29 Resp 18 12/21/17 14:29 BP 114/72 12/21/17 14:29 Pulse Ox 95 12/21/17 14:29 - Medical History PMH: Arthritis, Depression, HTN, Hypercholesterolemia Denies: Anemia, Anxiety, Atrial Fibrillation, Bipolar Disorder, CAD, Cardia Arrhythmia, CHF, Crohn's Disease, Diverticulitis, Fractures, Gastritis, Gall Bladder Disease, HIV, Mitral Valve Prolapse, Osteoporosis, Pancreatitis, Paranoia, Peripheral Edema, Post Traumatic Stress Disorder, Chronic Kidney Disease, Rheumatoid Arthritis, Schizophrenia, Sickle Cell Disease Other PMH: uti; abd pain freq - Surgical History Surgical History: Cholecystectomy Denies: Appendectomy, CABG, Carotid Endarterectomy, Coronary Stent, Pacemaker, Tonsillectomy - Family History Family History: States: Unknown Family Hx, Hypertension - Living Arrangements Living Arrangements: With Family - Immunization History Hx Tetanus Toxoid Vaccination: No Hx Influenza Vaccination: No Hx Pneumococcal Vaccination: No - Home Medications Home Medications: Ambulatory Orders Medication Instructions Recorded Calcium/Vitamin D [Calcium + D 600 1 tab PO BID 12/04/13 mg-200 Iu] Escitalopram [Lexapro] 10 mg PO DAILY 12/04/13 Lisinopril 10 mg PO DAILY 12/04/13 Omeprazole 40 mg PO DAILY 12/04/13 Simvastatin 20 mg PO DAILY 12/04/13 Albuterol 0.5% [Albuterol 0.5% 3 ml IH Q4H PRN #50 neb 01/27/16 Inhal Moraima (2.5 mg/0.5 ml) UD] Aspirin [Adult Low Dose Aspirin EC] 81 mg PO DAILY 02/02/17 Nitrofurantoin Macrocrystals 1 cap PO BID #14 cap 02/02/17 [Macrobid] Ranitidine HCl [Zantac 75] 1 tab PO DAILY 02/02/17 Ciprofloxacin HCl [Cipro] 500 mg PO BID #14 tablet 05/01/17 Dicyclomine [Dicyclomine HCl] 10 mg PO TID PRN #15 cap 05/01/17 Metronidazole [Flagyl] 500 mg PO BID #14 tablet 05/01/17 Pantoprazole Sodium [Protonix] 20 mg PO DAILY #30 ect 05/01/17 Ciprofloxacin HCl [Cipro] 250 mg PO BID #6 tab 07/19/17 Sulfamethoxazole/Trimethoprim 1 tab PO BID #20 tab 08/17/17 [Bactrim DS 800 mg-160 mg] Albuterol HFA [Ventolin HFA 90 2 puff IH [id number] #1 puff 11/29/17 mcg/actuation (8 g)] Prednisone [Deltasone] 40 mg PO DAILY 4 Days #8 tablet 11/29/17 Cephalexin [cephalexin] 500 mg PO BID #13 cap 12/11/17 Phenazopyridine [Pyridium] 200 mg PO TID PRN #6 tab 12/11/17 Nitrofurantoin Macrocrystals 100 mg PO BID #10 cap 12/21/17 [Macrobid] - Allergies Allergies/Adverse Reactions: Allergies Allergy/AdvReac Type Severity Reaction Status Date / Time Sulfa (Sulfonamide AdvReac VOMITING Verified 12/21/17 14:28 Antibiotics) Review of Systems ROS Statement: Except As Marked, All Systems Reviewed And Found Negative Gastrointestinal: Positive for: Abdominal Pain Physical Exam - Reviewed Nursing Documentation Reviewed: Yes Vital Signs Reviewed: Yes - Physical Exam Appears: Positive for: Non-toxic, No Acute Distress Head Exam: Positive for: ATRAUMATIC, NORMAL INSPECTION, NORMOCEPHALIC Skin: Positive for: Normal Color, Warm, DRY Eye Exam: Positive for: EOMI, Normal appearance, PERRL ENT: Positive for: Normal ENT Inspection Neck: Positive for: Normal, Painless ROM Cardiovascular/Chest: Positive for: Regular Rate, Rhythm Respiratory: Positive for: CNT, Normal Breath Sounds Gastrointestinal/Abdominal: Positive for: Normal Exam, Bowel Sounds, Soft. Negative for: Tenderness, Guarding, Rebound Back: Positive for: Normal Inspection. Negative for: L CVA Tenderness, R CVA Tenderness Extremity: Positive for: Normal ROM. Negative for: Tenderness, Pedal Edema Neurologic/Psych: Positive for: Alert, Oriented - Laboratory Results Result Diagrams: 12/21/17 15:00 12/21/17 15:00 Interpretation Of Abn Labs: urine wbc - ECG ECG: Positive for: Interpreted By Me, Viewed By Me ECG Rhythm: Positive for: Normal QRS, Normal ST Segment, Sinus Rhythm O2 Sat by Pulse Oximetry: 95 Pulse Ox Interpretation: Normal - Progress ED Course And Treament: 1456: Stable. Given keflex at last visit for uti. Did not get ct abd/pelvis as pt. refused. 1652: No pain . AAOx3. Tolerated PO. UTI found. Will rx macrobid. PT. to fu with clinic. Urologist information provided. Disposition - Clinical Impression Clinical Impression: UTI (urinary tract infection) - Patient ED Disposition Is Patient to be Admitted: No Counseled Patient/Family Regarding: Studies Performed, Diagnosis, Need For Followup, Rx Given - Disposition Referrals: [facility] [Outside] - 12/23/17 Jay Jameson MD [Medical Doctor] - 12/23/17 Disposition: Routine/Home Disposition Time: 16:54 Condition: STABLE Additional Instructions: Return if not better in 3 days. Prescriptions: Nitrofurantoin Macrocrystals [Macrobid] 100 mg PO BID #10 cap Instructions: Urinary Tract Infection, Adult (DC) Forms: [employer] (Yi)
[2017-12-21 15:31] LABS: BASO % 0.4 % (0.0-2.0); EOS # 0.1 K/uL (0.0-0.7); EOS % 1.4 % (0.0-4.0); HEMOGLOBIN 12.4 g/dL (12.0-16.0); MEAN CELL VOLUME 87.4 fl (81.0-99.0); MEAN CORPUSCULAR HEMOGLOBIN 28.4 pg (27.0-31.0); MEAN CORPUSCULAR HGB CONC 32.5 g/dL (33.0-37.0); MONO # 0.6 K/uL (0.0-0.8); MONO % 7.9 % (0.0-10.0); NEUT # 4.3 K/uL (1.8-7.0); NEUT % 61.3 % (50.0-75.0); NRBC % 0.2 % (0.0-0.0); RBC 4.37 Mil/uL (3.80-5.20); RED CELL DISTRIBUTION WIDTH 14.4 % (11.5-14.5); WHITE BLOOD COUNT 7.1 K/uL (4.8-10.8)
[2017-12-21 15:48] LABS: SQUAMOUS EPITHIAL 2 /hpf (0-5); URINE BACTERIA RARE (<OCC); URINE BILIRUBIN NEGATIVE (NEGATIVE); URINE BLOOD SMALL (NEGATIVE); URINE CLARITY SLIGHTY-CLOUDY (Clear); URINE COLOR AMBER (YELLOW); URINE GLUCOSE (UA) NEG (Normal); URINE LEUKOCYTE ESTERASE SMALL Leu/uL (Negative); URINE PROTEIN NEGATIVE (NEGATIVE)
[2017-12-21 16:35] LABS: ALBUMIN 3.6 g/dL (3.5-5.0); ALT/SGPT 23 U/L (9-52); AST/SGOT 47 U/L (14-36); BLOOD UREA NITROGEN 14 mg/dl (7-17); CALCIUM 9.7 mg/dL (8.4-10.2); GFR NON-AFRICAN AMERICAN > 60; LIPASE 79 U/L (23-300)
--- NOTE | 2017-12-22 02:56 | CARD ---
APPROVED REPORT Date of service: 12/21/2017 EKG Measurement Heart [id number] <Conclusion> Normal sinus rhythm Normal ECG
== END 2017-12-21 17:46 | disposition home or self-care (01) ==
LOC: H.ER 13:55
DX: N39.0 Urinary tract infection, site not specified (principal); I10 Essential (primary) hypertension; Z79.82 Long term (current) use of aspirin; Z86.59 Personal history of other mental and behavioral disorders; Z88.2 Allergy status to sulfonamides
CPT/HCPCS: 80053; 81003; 83690; 84484; 85025; 87086; 93005; 96374; 99285; J7040

== ENCOUNTER 2018-01-01 06:48 | Emergency (ER) | payer MEDICARE ==
[2018-01-01 07:05] VITALS: BMI 28.2
--- NOTE | 2018-01-01 07:28 | ED PDOC ---
HPI: General Adult Time Seen by Provider: 01/01/18 07:20 Chief Complaint (Provider): UTI History Per: Patient History/Exam Limitations: no limitations Onset/Duration Of Symptoms: Days (x2) Current Symptoms Are (Timing): Still Present Additional Complaint(s): 82 year old female, with a PMHx of HTN and prior UTIs, presenting for evaluation of UTI x2 days. Patient is currently complaining of abdominal discomfort associated with 1 episode of diarrhea this morning. Patient also reports nausea, but denies any vomiting, dysuria, urinary frequency, back pain, fevers, or chills. Past Medical History Reviewed: Historical Data, Nursing Documentation, Vital Signs Vital Signs: Last Vital Signs Temp 97.5 F L 01/01/18 07:03 Pulse 84 01/01/18 07:03 Resp 20 01/01/18 07:03 BP 142/84 01/01/18 07:03 Pulse Ox 94 L 01/01/18 07:03 - Medical History PMH: Arthritis, Depression, HTN, Hypercholesterolemia Denies: Anemia, Anxiety, Atrial Fibrillation, Bipolar Disorder, CAD, Cardia Arrhythmia, CHF, Crohn's Disease, Diverticulitis, Fractures, Gastritis, Gall Bladder Disease, HIV, Mitral Valve Prolapse, Osteoporosis, Pancreatitis, Paranoia, Peripheral Edema, Post Traumatic Stress Disorder, Chronic Kidney Disease, Rheumatoid Arthritis, Schizophrenia, Sickle Cell Disease - Surgical History Surgical History: Cholecystectomy Denies: Appendectomy, CABG, Carotid Endarterectomy, Coronary Stent, Pacemaker, Tonsillectomy - Family History Family History: States: Unknown Family Hx, Hypertension - Immunization History Hx Tetanus Toxoid Vaccination: No Hx Influenza Vaccination: No Hx Pneumococcal Vaccination: No - Home Medications Home Medications: Ambulatory Orders Medication Instructions Recorded Calcium/Vitamin D [Calcium + D 600 1 tab PO BID 12/04/13 mg-200 Iu] Escitalopram [Lexapro] 10 mg PO DAILY 12/04/13 Lisinopril 10 mg PO DAILY 12/04/13 Omeprazole 40 mg PO DAILY 12/04/13 Simvastatin 20 mg PO DAILY 12/04/13 Albuterol 0.5% [Albuterol 0.5% 3 ml IH Q4H PRN #50 neb 01/27/16 Inhal Moraima (2.5 mg/0.5 ml) UD] Aspirin [Adult Low Dose Aspirin EC] 81 mg PO DAILY 02/02/17 Nitrofurantoin Macrocrystals 1 cap PO BID #14 cap 02/02/17 [Macrobid] Ranitidine HCl [Zantac 75] 1 tab PO DAILY 02/02/17 Ciprofloxacin HCl [Cipro] 500 mg PO BID #14 tablet 05/01/17 Dicyclomine [Dicyclomine HCl] 10 mg PO TID PRN #15 cap 05/01/17 Metronidazole [Flagyl] 500 mg PO BID #14 tablet 05/01/17 Pantoprazole Sodium [Protonix] 20 mg PO DAILY #30 ect 05/01/17 Ciprofloxacin HCl [Cipro] 250 mg PO BID #6 tab 07/19/17 Sulfamethoxazole/Trimethoprim 1 tab PO BID #20 tab 08/17/17 [Bactrim DS 800 mg-160 mg] Albuterol HFA [Ventolin HFA 90 2 puff IH [id number] #1 puff 11/29/17 mcg/actuation (8 g)] Prednisone [Deltasone] 40 mg PO DAILY 4 Days #8 tablet 11/29/17 Cephalexin [cephalexin] 500 mg PO BID #13 cap 12/11/17 Phenazopyridine [Pyridium] 200 mg PO TID PRN #6 tab 12/11/17 Nitrofurantoin Macrocrystals 100 mg PO BID #10 cap 12/21/17 [Macrobid] Ciprofloxacin HCl [Cipro] 500 mg PO BID #20 tab 01/01/18 Ondansetron [Zofran] 4 mg PO Q8H #10 tab 01/01/18 - Allergies Allergies/Adverse Reactions: Allergies Allergy/AdvReac Type Severity Reaction Status Date / Time Sulfa (Sulfonamide AdvReac VOMITING Verified 01/01/18 07:49 Antibiotics) Review of Systems ROS Statement: Except As Marked, All Systems Reviewed And Found Negative Constitutional: Negative for: Fever, Chills Gastrointestinal: Positive for: Nausea, Abdominal Pain. Negative for: Vomiting Genitourinary Female: Negative for: Dysuria, Frequency Musculoskeletal: Negative for: Back Pain Physical Exam - Reviewed Nursing Documentation Reviewed: Yes Vital Signs Reviewed: Yes - Physical Exam Appears: Positive for: Non-toxic, No Acute Distress Head Exam: Positive for: ATRAUMATIC, NORMAL INSPECTION, NORMOCEPHALIC Skin: Positive for: Normal Color, Warm, Dry. Negative for: Rash Eye Exam: Positive for: EOMI, Normal appearance, PERRL ENT: Positive for: Normal ENT Inspection Neck: Positive for: Normal, Painless ROM, Supple Cardiovascular/Chest: Positive for: Regular Rate, Rhythm. Negative for: Murmur Respiratory: Positive for: Normal Breath Sounds. Negative for: Respiratory Distress Gastrointestinal/Abdominal: Positive for: Normal Exam, Soft. Negative for: Tenderness Back: Positive for: Normal Inspection. Negative for: L CVA Tenderness, R CVA Tenderness, Vertebral Tenderness Extremity: Positive for: Normal ROM. Negative for: Pedal Edema, Deformity Neurologic/Psych: Positive for: Alert, Oriented. Negative for: Motor/Sensory Deficits - Laboratory Results Result Diagrams: 01/01/18 07:41 01/01/18 07:41 - ECG O2 Sat by Pulse Oximetry: 94 (RA) Medical Decision Making Medical Decision Makin Plan: -VBG Shock Panel -CMP -CBC -Blood culture -Urine culture -UA -Reevaluation Scribe Attestation: Documented by Joe Galicia, acting as a scribe for Lefty Gaston MD. Provider Scribe Attestation: All medical record entries made by the Scribe were at my direction and personally dictated by me. I have reviewed the chart and agree that the record accurately reflects my personal performance of the history, physical exam, medical decision making, and the department course for this patient. I have also personally directed, reviewed, and agree with the discharge instructions and disposition. Disposition - Clinical Impression Clinical Impression: UTI (urinary tract infection) - Patient ED Disposition Is Patient to be Admitted: No Counseled Patient/Family Regarding: Studies Performed, Diagnosis, Need For Followup, Rx Given - Disposition Referrals: [facility] [Outside] Disposition: Routine/Home Disposition Time: 08:36 Condition: FAIR Prescriptions: Ciprofloxacin HCl [Cipro] 500 mg PO BID #20 tab Ondansetron [Zofran] 4 mg PO Q8H #10 tab Instructions: Urinary Tract Infections in Adults
[2018-01-01] MEDS ORDERED: Sodium Chloride 0.9% 1,000 ML IV STA (07:42)
[2018-01-01 07:50] LABS: BASO % 0.7 % (0.0-2.0); EOS # 0.2 K/uL (0.0-0.7); EOS % 2.3 % (0.0-4.0); HEMOGLOBIN 13.2 g/dL (12.0-16.0); LYMPH # 1.6 K/uL (1.0-4.3); LYMPH % 25.4 % (20.0-40.0); MEAN CELL VOLUME 87.3 fl (81.0-99.0); MEAN CORPUSCULAR HEMOGLOBIN 28.4 pg (27.0-31.0); MEAN CORPUSCULAR HGB CONC 32.5 g/dL (33.0-37.0); MEAN PLATELET VOLUME 8.3 fl (7.2-11.7); MONO # 0.4 K/uL (0.0-0.8); MONO % 6.9 % (0.0-10.0); NEUT # 4.2 K/uL (1.8-7.0); NEUT % 64.7 % (50.0-75.0); NRBC % 0.1 % (0.0-0.0); RBC 4.65 Mil/uL (3.80-5.20); RED CELL DISTRIBUTION WIDTH 14.3 % (11.5-14.5); WHITE BLOOD COUNT 6.4 K/uL (4.8-10.8)
[2018-01-01 08:06] LABS: ALT/SGPT 21 U/L (9-52); AST/SGOT 39 U/L (14-36); BLOOD UREA NITROGEN 21 mg/dl (7-17); CALCIUM 9.6 mg/dL (8.4-10.2); GFR NON-AFRICAN AMERICAN > 60
[2018-01-01 08:11] LABS: SQUAMOUS EPITHIAL 5 /hpf (0-5); URINE BILIRUBIN NEGATIVE (NEGATIVE); URINE BLOOD MODERATE (NEGATIVE); URINE CLARITY SLIGHTY-CLOUDY (Clear); URINE COLOR YELLOW (YELLOW); URINE GLUCOSE (UA) NEG (Normal); URINE LEUKOCYTE ESTERASE SMALL Leu/uL (Negative); URINE PROTEIN NEGATIVE (NEGATIVE); URINE UROBILINOGEN 0.2-1.0 mg/dL (0.2-1.0)
[2018-01-01 08:46] VITALS: BP 119/76; PULSE 74; RESP 18; TEMP 97.6; O2SAT 96
== END 2018-01-01 09:00 | disposition home or self-care (01) ==
LOC: H.ER 06:48
DX: N39.0 Urinary tract infection, site not specified (principal)
CPT/HCPCS: 80053; 81003; 85025; 87040; 87086; 87181; 96361; 96374; 99284; J2405; J7030

== ENCOUNTER 2018-01-27 09:10 | Day surgery (SDC) | payer MEDICARE ==
[2018-01-27] MEDS ORDERED: Lidocaine 2% Jelly (Uro-Jet) ONE (10:08)
[2018-01-27] MEDS ORDERED: Iohexol 300 100 ML IJ ONE (10:09)
[2018-01-27] MEDS ORDERED: cefTRIAXone (Rocephin) 1 gm Inj ONE (10:09)
[2018-01-27] MEDS ORDERED: Sodium Chloride 0.9% 100 ML IV ONE (10:20)
[2018-01-27] MEDS ORDERED: Midazolam 2 MG/2 ML VIAL ONE (10:29)
[2018-01-27] MEDS ORDERED: Etomidate 20 mg/10ml Inj IV ONE (10:49)
[2018-01-27] MEDS ORDERED: Lactated Ringer's 1,000 ML IV SCH (11:15)
[2018-01-27 12:59] VITALS: BMI 27.1
[2018-01-27 13:01] VITALS: RESP 18
[2018-01-27 13:34] VITALS: BP 122/76; PULSE 76; TEMP 97.6; O2SAT 95
--- NOTE | 2018-01-27 15:05 | RAD ---
Date of service: 01/27/2018 PROCEDURE: Intraoperative Fluoroscopy. HISTORY: CYSTOGRAM FINDINGS: Fluoroscopic assistance was provided for cystography. Please refer to the operative report from SULEIMAN Zaragoza.
--- NOTE | 2018-01-28 07:03 | OP ---
PROCEDURE DATE: 01/27/2018 SURGEON: Floyd Lynch MD ANESTHESIOLOGIST: Julio Cesar Fulton MD ANESTHESIA: Local / IV Sedation PREOPERATIVE DIAGNOSIS: Recurrent urinary tract infection. POSTOPERATIVE DIAGNOSIS: Recurrent urinary tract infection. PROCEDURE: Cystogram followed by cystoscopy. DESCRIPTION OF PROCEDURE: The patient was placed on the operating room table in dorsal lithotomy position. At this time, a #18 two-way Jim catheter was inserted. Bladder was emptied. Urine was clear, probably less than 50 mL. At this time, I filled the bladder with Cystografin material to the point of fullness. She was able to hold about 300 mL. At this time, I applied abdominal pressure. I had the patient to void against my abdominal pressure, looking for reflux, and I did not see any. I emptied the bladder. There was no residual urine in the ureters. At this time then, she was given IV sedation and then I did a cystoscopy. The bladder itself was completely free of any lesions. There was no dropped bladder. Ureteral orifices were effluxing clear and in normal position. The bladder neck appeared to be okay. The comment is she has a very stenotic vaginal opening, probably could be associated with the presence of recurrent urinary tract infection, otherwise no other findings were noted. The patient was taken from the operating room in good condition. Floyd Lynch MD
== END 2018-01-27 13:35 | disposition home or self-care (01) ==
LOC: H.OPSURG 09:10
PROVIDERS: ATTEND Urology
DX: N39.0 Urinary tract infection, site not specified (principal); E78.5 Hyperlipidemia, unspecified; I10 Essential (primary) hypertension; F32.9 Major depressive disorder, single episode, unspecified
CPT/HCPCS: 51600; 74430; J0696; J2250; J3010; J7120; Q9967

== ENCOUNTER 2018-04-12 14:10 | Emergency (ER) | payer MEDICARE ==
[2018-04-12 14:10] VITALS: BMI 27.1
[2018-04-12 14:18] VITALS: RESP 18; TEMP 97.5; O2SAT 99
--- NOTE | 2018-04-12 15:59 | RAD ---
PROCEDURE: Right Hip Radiographs. HISTORY: RIGHT hip pain s/p fall h/o surgery COMPARISON: CT scan of the abdomen pelvis dated 10/13/2017 FINDINGS: BONES: Diffuse osteopenia. 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 Left femoral head bony remodeling. JOINTS: Left hip degenerative changes SOFT TISSUES: Normal. OTHER FINDINGS: None. IMPRESSION: Prior right hip arthroplasty. No acute fracture or evidence of component loosening.
--- NOTE | 2018-04-12 16:07 | ED PDOC ---
Arrival/HPI - General Chief Complaint: Hip Pain Time Seen by Provider: 04/12/18 15:10 Past Medical History - Infectious Disease Hx of Infectious Diseases: None - Cardiac Hx Cardiac Disorders: Yes Hx Angina: No Hx Cardiac Arrhythmia: No Hx Circulatory Problems: No Hx Congestive Heart Failure: No Hx GA: No Hx Heart Murmur: No Hx Heart Transplant: No Hx Hypertension: Yes Hx Hypotension: No Hx Internal Defibrillator: No Hx Mitral Valve Prolapse: No Hx Pacemaker: No Hx Peripheral Edema: No Hx Peripheral Vascular Disease: No - Pulmonary Hx Respiratory Disorders: No - Neurological Hx Neurological Disorder: No - HEENT Hx HEENT Disorder: Yes Hx Blind: No Hx Cataracts: Yes Hx Deafness: No Hx Difficulty Chewing: No Hx Epistaxis: No Hx Glaucoma: No Hx Macular Degeneration: No - Renal Hx Renal Disorder: No - Endocrine/Metabolic Hx Endocrine Disorders: No - Hematological/Oncological Hx Blood Disorders: No Hx AIDS: No Hx Anemia: No Hx Blood Transfusions: Yes Hx Blood Transfusion Reaction: No Hx Bruising: No Hx Cancer: No Hx Chemotherapy: No Hx Cirrhosis: No Hx Gum Bleeding: No Hx Hemophilia: No Hx Hepatitis A: No Hx Hepatitis B: No Hx Hepatitis C: No Hx Leukemia: No Hx Lymphoma: No Hx Metastasis: No Hx Shingles: No Hx Sickle Cell Trait: No Hx Sickle Cell Disease: No Hx Unexplained Bleeding: No Hx von Willebrand's Disease: No - Integumentary Hx Dermatological Disorder: No - Musculoskeletal/Rheumatological Hx Musculoskeletal Disorders: Yes Hx Arthritis: Yes Hx Back Pain: No Hx Degenerative Joint Disease: No Hx Falls: No Hx Fractures: No Hx Gout: No Hx Herniated Disk: No Hx Myasthenia Gravis: No Hx Osteoarthritis: No Hx Osteomyelitis: No Hx Osteoporosis: No Hx Rhabdomyolysis: No Hx Rheumatoid Arthritis: No Hx Spinal Stenosis: No Hx Unsteady Gait: No - Gastrointestinal Hx Gastrointestinal Disorders: Yes Hx Bowel Surgery: No Hx Clostridium Difficile: No Hx Colitis: No Hx Colostomy: No Hx Crohn's Disease: No Hx Diverticulitis: No Hx Esophageal Varices: No Hx Fatty Liver Disease: No Hx Gall Bladder Disease: No Hx Gastritis: No Hx Gastroesophageal Reflux: Yes Hx Hemorrhoids: No Hx Ileostomy: No Hx Irritable Bowel: No Hx Liver Failure: No Hx Pancreatitis: No HX Swallowing Problems: No - Genitourinary/Gynecological Hx Genitourinary Disorders: No - Psychiatric Hx Emotional Abuse: No Hx Physical Abuse: No Hx Substance Use: No - Surgical History Hx Abdominal Aortic Aneurysm Repair: No Hx Amputation: No Hx Angiogram: No Hx Angioplasty: No Hx Appendectomy: No Hx Arteriovenous Shunt: No Hx Arthroscopy: No Hx Bile Duct Stent: No Hx Breast Biopsy: No Hx Cataract Extraction: No Hx Cardiac Catheterization: No Hx Carotid Endarterectomy: No Hx Section: No Hx Cholecystectomy: Yes Hx Coronary Artery Bypass Graft: No Hx Coronary Stent: No Hx Dilation and Curettage: No Hx Eye Surgery: No Hx Femoral-Popliteal Bypass Graft: No Hx Gastric Bypass Surgery: No Hx Hysterectomy: No Hx Joint Replacement: Yes (PARTIAL HIP REPLACEMENT RIGHT) Hx Kidney Transplant: No Hx Liver Transplant: No Hx Mastectomy: No Hx Musculoskeletal Surgery: No Hx Open Heart Surgery: No Hx Open Reduction Internal Fixation: Yes (RT HIP) Hx Orthopedic Surgery: Yes (lucille. hip sx) Hx Parathyroidectomy: No Hx Penile Implant: No Hx Pulmonary Surgery: No Hx Splenectomy: No Hx Thyroidectomy: No Hx Tonsillectomy: No Hx Tubal Ligation: No Hx Valve Replacement: No Hx Vascular Surgery: No Hx Vascular Access Device: No Other/Comment: FNA - Anesthesia Hx Anesthesia: Yes Hx Anesthesia Reactions: No Hx Malignant Hyperthermia: No - Suicidal Assessment Feels Threatened In Home Enviroment: No Family/Social History Smoking Status: Never Smoked Hx Alcohol Use: No Hx Substance Use: No Allergies/Home Meds Allergies/Adverse Reactions: Allergies Sulfa (Sulfonamide Antibiotics) Adverse Reaction (Verified 01/27/18 09:55) VOMITING Home Medications: Home Meds Medication Instructions Recorded Confirmed Calcium/Vitamin D [Calcium + D 600 1 tab PO BID 12/04/13 01/21/18 mg-200 Iu] Escitalopram [Lexapro] 10 mg PO DAILY 12/04/13 01/21/18 Lisinopril 10 mg PO DAILY 12/04/13 01/21/18 Simvastatin 20 mg PO DAILY 12/04/13 01/21/18 Ranitidine HCl [Zantac 75] 1 tab PO DAILY 02/02/17 01/21/18 Physical Exam Vital Signs Temp Pulse Resp BP Pulse Ox 04/12/18 14:16 97.5 F L 80 18 143/80 99 Medical Decision Making - RAD Interpretation Radiology Orders: 04/12/18 15:17 Hip Right [HIP MIN 2V W/ PELVIS RT] [RAD] Stat Disposition/Present on Arrival - Disposition
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
--- NOTE | 2018-04-12 17:37 | CT ---
Date of service: 04/12/2018 PROCEDURE: CT of the right hip. HISTORY: RIGHT hip pain s/p fall h/o prosthesis COMPARISON: None available. TECHNIQUE: Contiguous axial images of the right hip were obtained. Coronal and sagittal reformats were generated. Radiation dose: Total exam DLP = 686.73 mGy-cm. This CT exam was performed using one or more of the following dose reduction techniques: Automated exposure control, adjustment of the mA and/or kV according to patient size, and/or use of iterative reconstruction technique. FINDINGS: BONES: Prior right hip arthroplasty limited evaluation due to streak artifact. No obvious periprosthetic fracture or periprosthetic lucency to suggest component loosening. Extensive heterotopic calcification adjacent to the prosthesis old fractures of the right inferior and superior pubic rami.. SOFT TISSUES: Unremarkable. IMPRESSION: Prior right hip arthroplasty without evidence of fracture or hardware complication.
[2018-04-12 17:56] VITALS: BP 140/82; PULSE 78
== END 2018-04-12 17:55 | disposition home or self-care (01) ==
LOC: H.ER 14:10
DX: S70.01XA Contusion of right hip, initial encounter (principal); W19.XXXA Unspecified fall, initial encounter; Y92.410 Unspecified street and highway as the place of occurrence of the external cause; E78.00 Pure hypercholesterolemia, unspecified; I10 Essential (primary) hypertension; Z96.641 Presence of right artificial hip joint